=== PATIENT | female | born 1975 | race Caucasian/White ===

== ENCOUNTER 2018-05-09 13:56 | Emergency (ER) | payer OTHER, SELFPAY ==
[2018-05-09 13:57] VITALS: BP 154/91; PULSE 95; RESP 20; TEMP 36.9; O2SAT 97; BMI 31.7
--- NOTE | 2018-05-09 14:11 | CT_ITS ---
STUDY: CT ABDOMEN AND PELVIS WITHOUT CONTRAST REASON FOR EXAM: Female, 43 years old. Right flank pain. RADIATION DOSAGE (If Supplied By Facility): CTDIvol = ( 9.79 ) mGy, DLP = ( 445.63 ) mGycm TECHNIQUE: Transaxial images were obtained from the dome of the diaphragm to the symphysis pubis without oral contrast, and without intravenous contrast. Sagittal and coronal images were reconstructed. Individualized dose optimization techniques were used for this CT. COMPARISON: None. FINDINGS: The visualized lung bases are unremarkable. The visualized portions of the heart are within normal limits. There is decreased attenuation of the liver consistent with steatosis. Hepatomegaly. There are surgical clips in the gallbladder fossa consistent with a prior cholecystectomy. Normal spleen. Normal pancreas. Normal bilateral adrenal glands. 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 Focal atrophy of the lower pole of the right kidney. Mild hydronephrosis and hydroureter of the lower pole moiety of the right kidney. No ureteral obstruction is seen at this time. Normal left kidney. There is a small hiatal hernia. Normal small intestine. Normal colon. Small lymph nodes are seen in the mesentery in the right lower quadrant. The appendix is visualized and appears normal. Normal abdominal aorta. Normal inferior vena cava. Normal retroperitoneum. Normal urinary bladder. Enlarged fibroid uterus. Follicles are seen in the left ovary. Normal abdominal wall. Normal osseous structures. CT/Abdomen/Pelvis without Cont IMPRESSION: Focal atrophy of the lower pole moiety of the right kidney with mild right hydronephrosis and right hydroureter without ureteral obstruction at this time. Enlarged fibroid uterus. Hepatomegaly and fatty infiltration of the liver. Electronically Signed: Cameron Sierra MD at 14:59 EDT Tel [phone], Service support ,
[2018-05-09] MEDS: Ketorolac 30 MG/ML Syringe IV (14:25)
[2018-05-09] MEDS: 0.9% Normal Saline 1,000 ML 250 ML IV ×2 (14:25→15:58)
[2018-05-09] MEDS: Ondansetron 4 MG/2 ML Vial IV (14:31)
[2018-05-09 14:34] LABS: Mucous, Urine 0 SEEN /hpf (<or=2+)
[2018-05-09 14:39] LABS: Color, Urine Yellow (Yellow); Glucose, Dipstick 1000 mg/dl (Normal); Ketone-Dipstick 5 mg/dl (Negative); Leukocyte Esterase-Dipstick 100 /ul (Negative); Nitrite-Dipstick Negative (Negative); Occult Blood-Urine 25 /ul (Negative); Protein-Dipstick 15 mg/dl (Negative); Specific Gravity, Urine 1.015 (1.002-1.030); Urine Bilirubin Dipstick Negative (Negative); Urine Clarity Sl. Cloudy (Clear); Urine Urobilinogen Normal (Normal)
[2018-05-09 14:40] LABS: Absolute Lymphocyte Count 2.66 X10^3/ul (0.83-4.51); Absolute Neutrophil Count 4.7 X10^3/uL (2.0-7.7); Basophil# 0.04 X10^3/uL; Basophil% 0.5 % (0-1); Eosinophil# 0.13 X10^3/uL; Eosinophils% 1.6 % (0-5); Hematocrit 44.7 % (37-47); Hemoglobin 15.6 g/dl (12.0-15.0); Lymphocyte # 2.66 X10^3/ul (4.0); Lymphocyte % 33.2 % (19-41); Mean Corp Hgb Conc 34.9 g/gl (32-36); Mean Corpuscular Hgb 31.3 pg (27.0-32.0); Mean Corpuscular Volume 89.6 fL (81-99); Mean Platelet Vol. 9.1 fl (6.2-12.0); Monocyte# 0.42 X10^3/uL; Monocyte% 5.2 % (0-10); Neutrophil # 4.74 X10^3/uL (2.7-7.7); Neutrophil % 59.3 % (47-70); Platelet Count 213 K/mm3 (150-450); RBC Distribution Width CV 12.4 % (11.6-14.6); Red Blood Count 4.99 M/mm3 (4.2-5.4)
[2018-05-09 14:41] LABS: POSITIVE COUNT NO; POSITIVE DIFFERENTIAL NO; POSITIVE MORPHOLOGY NO
[2018-05-09 14:48] LABS: Anion Gap 9 (5-15); BUN 11 mg/dL (7-18); BUN/Creat Ratio 14.7 RATIO (10-20); Chloride 100 mmol/L (98-107); Creatinine, Serum 0.75 mg/dL (0.55-1.02); EST Glomerular Filtration Rate 89 mL/min (>60); Est Glom Filt Rate - Afr Amer 108 mL/min (>60); Estimated Creatinine Clearance 106.49 ml/min; Glucose 242 mg/dL (74-106); Sodium Level 134 mmol/L (136-145)
[2018-05-09 14:55] LABS: Red Blood Cells-Urine 0-5 SEEN /hpf (0-5); Squamous Epithelial Cells - UA 0-5 SEEN /hpf (5-10); White Blood Cells 5-10 SEEN /hpf (0-5)
[2018-05-09 14:56] LABS: Bacteria RARE /hpf (None Seen); Yeast-Urine RARE /hpf (None Seen)
[2018-05-09] MEDS: morphine 8 MG/ML Syringe 6 MG IV ×2 (15:18→15:55)
--- NOTE | 2018-05-09 15:22 | ED.DCSUM_ITS ---
- ER Visit Summary Date of Service: 05/09/18 Chief Complaint: Acute right flank pain radiating anteriorly History of Present Illness: Patient presents with acute right flank pain that radiates anteriorly with nausea and dry heaves. Started 1-2 hours prior to presentation. She has no history of renal ureterolithiasis. She has no history of any past medical history. There is a family history of diabetes. She denies any fever, chills night sweats. She denies any ocular, visual auditory symptoms. Denies chest pain, palpitations or rapid heartbeat. She denies shortness of breath, cough, dyspnea on exertion. She does complain of frequency and concerned she may have a bladder infection. She states she had a serious kidney infection in the past. She is status post cholecystectomy. She denies any food intolerance. PHYSICAL EXAM: Patient appears uncomfortable. She has dry heaves. She is pacing in the room. She is holding her right side. Vital signs micromelic blood pressure 134/97. She is afebrile. HEENT exam is unremarkable. Heart is regular without murmur, gallop or rub. S1 and S2 are normal. Lungs are clear to auscultation with good movement of air bilaterally. Abdomen is soft nontender with diminished bowel sounds. There is no paraspinal megaly. There is no CVA tenderness noted. There is no evidence of hernia. There is no dermatologic lesions suggest herpes varicella-zoster. Lower extremity exam is unremarkable. She is alert oriented ?3 with nonfocal neurologic exam Test Results: CT of the abdomen reveals hydronephrosis hydroureter without visualized stone. CBC is unremarkable. BMP is marked for glucose of 242. Urinalysis is remarkable for leukoesterase and blood 125 especially on macro. 0 -5 WBCs 5-10 RBCs with rare bacteria. Glucose is 1000. Emergency Department Course and Treatment: IV was established and she was treated with 4 mg of Zofran with resolution of her nausea and vomiting and 30 minutes Toradol. She complained of severe pain. She is received 2 doses morphine 6 mg IV push. She is still in discomfort. She received a third dose of morphine. Page was placed to Dr. Sanchez for urology. He will admit patient. He asked for the floor to call him for orders. He is presently unable to give them. He has Treatment Plan: Since pain is not managed with probable morphine 30 of Toradol she will be admitted to urology service Disposition: 23 hour observation MedSurg Impression: Acute right flank pain with hydronephrosis and ureter Hyperglycemia in a nondiabetic, new onset diabetes This note was generated with [employer] dictation software. It may contain incorrect words, spelling, and punctuation that were not noted in review of the chart prior to signing ED Disposition - Plan for ED Patient: Disposition: Home or Assisted Living Chief Complaint: Flank Pain Referrals: [facility],Out of [Primary Care Provider] -
[2018-05-09 16:34] VITALS: BMI 31.7
[2018-05-09 17:35] VITALS: BP 139/89; PULSE 85; RESP 17; O2SAT 94
--- NOTE | 2018-05-09 17:58 | ED.DEP ---
ED Disposition - Plan for ED Patient: Disposition: Home or Assisted Living Chief Complaint: Flank Pain Instructions: ED Kidney Infec Female Prescriptions: Oxycodone HCl/Acetaminophen [Percocet 5/325] 1 tablet PO Q6H PRN PRN 3 Days #12 tablet PRN Reason: Pain proMETHazine tablet [Phenergan] 25 mg PO Q6H PRN PRN #10 tablet PRN Reason: Nausea Fluconazole [Diflucan] 150 mg PO X1 #1 tablet Ciprofloxacin [Cipro] 500 mg PO BID #14 tablet Referrals: [facility] Doctor,Out of [Primary Care Provider] -
--- NOTE | 2018-05-09 18:04 | DCINST.ED_ITS ---
ED Disposition - Plan for ED Patient: Disposition: Home or Assisted Living Chief Complaint: Flank Pain Instructions: ED Kidney Infec Female Prescriptions: Oxycodone HCl/Acetaminophen [Percocet 5/325] 1 tablet PO Q6H PRN PRN 3 Days #12 tablet PRN Reason: Pain proMETHazine tablet [Phenergan] 25 mg PO Q6H PRN PRN #10 tablet PRN Reason: Nausea Fluconazole [Diflucan] 150 mg PO X1 #1 tablet Ciprofloxacin [Cipro] 500 mg PO BID #14 tablet Referrals: [facility] Doctor,Out of [Primary Care Provider] -
[2018-05-09 18:35] VITALS: PULSE 85; RESP 17; O2SAT 95
== END 2018-05-09 18:49 | disposition home or self-care (01) ==
PROVIDERS: Emergency Medicine; Emergency Provider Emergency Medicine
DX: N13.30 Unspecified hydronephrosis (principal); E11.65 Type 2 diabetes mellitus with hyperglycemia; Z83.3 Family history of diabetes mellitus; Z90.49 Acquired absence of other specified parts of digestive tract
CPT/HCPCS: 74176; 80048; 81001; 85025; 87086; 87088; 96361; 96374; 96375; 96376; 99283; J7030; A4216; J2405

== ENCOUNTER 2018-05-10 13:41 | Inpatient (IN) | payer OTHER, SELFPAY ==
[2018-05-10] VITALS (8 sets, daily range): BP systolic 105–144; BP diastolic 72–97; PULSE 105–109; RESP 16–20; TEMP 36.6–38.8; O2SAT 92–97; BMI 30.4; BMI 30.5
[2018-05-10 14:24] LABS: Mucous, Urine 0 SEEN /hpf (<or=2+)
[2018-05-10 14:27] LABS: Color, Urine Yellow (Yellow); Glucose, Dipstick 1000 mg/dl (Normal); Ketone-Dipstick 50 mg/dl (Negative); Leukocyte Esterase-Dipstick 100 /ul (Negative); Nitrite-Dipstick Negative (Negative); Occult Blood-Urine 25 /ul (Negative); Protein-Dipstick Negative (Negative); Urine Bilirubin Dipstick Negative (Negative); Urine Clarity Sl. Cloudy (Clear); Urine Urobilinogen Normal (Normal)
[2018-05-10 14:36] LABS: Bacteria RARE /hpf (None Seen); Red Blood Cells-Urine 0-5 SEEN /hpf (0-5); Squamous Epithelial Cells - UA 0-5 SEEN /hpf (5-10); White Blood Cells 10-25 SEEN /hpf (0-5)
[2018-05-10] MEDS: LORazepam 2 MG/ML Syringe 1 MG IV (14:43)
[2018-05-10] MEDS: Ketorolac 30 MG/ML Syringe IV (14:43)
[2018-05-10] MEDS: Morphine 4 MG/ML Syringe IV (14:43)
[2018-05-10] MEDS: Ondansetron 4 MG/2 ML Vial IV (14:43)
[2018-05-10 14:45] LABS: Absolute Lymphocyte Count 1.64 X10^3/ul (0.83-4.51); Absolute Neutrophil Count 13.5 X10^3/uL (2.0-7.7); Basophil# 0.03 X10^3/uL; Basophil% 0.2 % (0-1); Eosinophil# 0.04 X10^3/uL; Eosinophils% 0.2 % (0-5); Hematocrit 42.9 % (37-47); Hemoglobin 15.1 g/dl (12.0-15.0); Lymphocyte # 1.64 X10^3/ul (4.0); Lymphocyte % 9.9 % (19-41); Mean Corp Hgb Conc 35.2 g/gl (32-36); Mean Corpuscular Hgb 31.7 pg (27.0-32.0); Mean Corpuscular Volume 89.9 fL (81-99); Mean Platelet Vol. 8.9 fl (6.2-12.0); Monocyte# 1.27 X10^3/uL; Monocyte% 7.7 % (0-10); Neutrophil # 13.46 X10^3/uL (2.7-7.7); Neutrophil % 81.7 % (47-70); Platelet Count 214 K/mm3 (150-450); RBC Distribution Width CV 12.5 % (11.6-14.6); RBC Distribution Width SD 40.7 fl (35.1-43.9); Red Blood Count 4.77 M/mm3 (4.2-5.4); White Blood Count 16.5 K/mm3 (4.4-11.0)
[2018-05-10 14:47] LABS: POSITIVE COUNT NO; POSITIVE DIFFERENTIAL NO; POSITIVE MORPHOLOGY NO
[2018-05-10 14:54] LABS: ALB/GLOB Ratio 0.9 RATIO (0.9-2.4); AST(SGOT) 24 U/L (15-37); Alanine Aminotransfer ALT/SGPT 60 U/L (13-56); Albumin, Serum 3.6 g/dL (3.2-5.0); Alkaline Phosphatase 70 U/L (45-117); Anion Gap 8 (5-15); BUN 7 mg/dL (7-18); BUN/Creat Ratio 8.9 RATIO (10-20); Calcium,Total 8.5 mg/dL (8.5-10.1); Chloride 100 mmol/L (98-107); Creatinine, Serum 0.78 mg/dL (0.55-1.02); EST Glomerular Filtration Rate 85 mL/min (>60); Est Glom Filt Rate - Afr Amer 102 mL/min (>60); Estimated Creatinine Clearance 65.42 ml/min; Globulin 3.9 g/dL (2.2-4.2); Glucose 261 mg/dL (74-106); Potassium 3.8 mmol/L (3.5-5.1); Protein, Total 7.5 g/dL (6.4-8.2); Sodium Level 133 mmol/L (136-145)
--- NOTE | 2018-05-10 14:57 | CT_ITS ---
STUDY: CT ABDOMEN AND PELVIS WITH CONTRAST REASON FOR EXAM: Female, 43 years old. Right flank pain RADIATION DOSAGE (If Supplied By Facility): CTDIvol = ( 18.73 ) mGy, DLP = ( 1884.31 ) mGycm TECHNIQUE: Transaxial images were obtained from the dome of the diaphragm to the symphysis pubis without oral contrast. 100 ml of Isovue 300 contrast was administered. Sagittal and coronal images were reconstructed. Individualized dose optimization techniques were used for this CT. COMPARISON: May 09, 2018. FINDINGS: The visualized lung bases are unremarkable. The visualized portions of the heart are within normal limits. There is hepatomegaly with diffuse hepatic enlargement. There are surgical clips in the gallbladder fossa consistent with a prior cholecystectomy. Normal spleen. Normal pancreas. Normal bilateral adrenal glands. There is cortical thinning with scarring at the lower pole of the right kidney. There is diminished function at the lower pole of the right kidney. 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 There is moderate hydronephrosis of the lower pole moiety with perinephric stranding. Normal left kidney. Normal visualized stomach. Normal small intestine. Normal colon. There is non-visualization of the appendix. Normal abdominal aorta. Normal inferior vena cava. Normal retroperitoneum. Normal urinary bladder. Normal visualized uterus. There is no free fluid in the abdomen or pelvis. Normal abdominal wall. Normal osseous structures. CT/Abdomen/Pelvis W IV Cont ONLY IMPRESSION: There is abnormal right kidney. 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 There is chronic moderate hydronephrosis of the lower pole moiety with thinning of the cortex and diminished function. No stones are seen. Hepatomegaly. Electronically Signed: Miah Crandall MD at 15:47 EDT , Service support ,
--- NOTE | 2018-05-10 15:04 | ED.DCSUM_ITS ---
- ER Visit Summary Date of Service: 05/10/18 Chief Complaint: Right flank pain History of Present Illness: The patient is a 43 F who states that she recently went on a 20+ day travel where she was driving. During which time she developed a yeast infection. She states that she was to return home to [facility] yesterday. She got about a half hour to her trip when she had a sudden onset of right sided abdominal and flank pain. States it is described as sharp constant waxing and waning. She was seen in the emergency department yesterday had a CT that showed her ureter of what appears to be a duplicated system on the right. Patient's white count at that time was 8. Urinalysis did not show overt infection. The patient was seen by urology and was discharged. Patient states that her pain is worse today. She does note some feelings of urinary frequency and some slight burning. No reported fevers. Physical Examination: Afebrile vital signs show a tachycardia of 105 Gen: Well-nourished well-developed Head: Normocephalic atraumatic Eyes: Perrl EOMI ENT: TMs clear no rhinorrhea moist mucous membranes Neck: Supple no lymphadenopathy no JVD nontender CVS: Regular rate rhythm no murmurs normal S1-S2 Respiratory: No distress clear to auscultation bilaterally chest nontender Abdomen: Soft mildly tender to palpation on the right quadrants nondistended normal bowel sounds no masses Back: Right CVA tenderness Extremity: Nontender no edema Skin: Normal color no rash Neuro: alert orientated ?3 CN II-XII intact normal strength sensation reflexes gait cerebellar Psych: Normal affect normal mood Test Results: White count today is 16.5 with 81.7 neutrophils. Glucose 261. Urinalysis 10-25 white cells with rare bacteria. CT abdomen pelvis now demonstrates periureteral and perinephric stranding. Blood and urine cultures were obtained. Emergency Department Course and Treatment: Patient received IV fluids, Ativan, morphine, Toradol, Zofran, and Rocephin. Her pain is improved. I discussed the case with Dr. Hartman. Her plan will be admission into the hospital. Impression: 1. Acute pyelonephritis This note was generated with [employer] dictation software. It may contain incorrect words, spelling, and punctuation that were not noted in review of the chart prior to signing ED Disposition - Plan for ED Patient: Chief Complaint: Abd Pain Referrals: [facility] Doctor,Out of [Primary Care Provider] -
[2018-05-10 15:52] LABS: Internal QC Validated? YES +Cl - CLEAR BKGD; Pregnancy, Urine Negative Negative
--- NOTE | 2018-05-10 16:24 | NURSING ---
DR TARIQ MIRZA
--- NOTE | 2018-05-10 16:25 | PCM.HP.STD ---
History of Present Illness The patient is a 43 year old F [] Past Medical History Past Medical History (Chronic Problems): Chronic Problems Borderline diabetes mellitus (Chronic) HLD (hyperlipidemia) (Chronic) Tobacco dependence (Chronic) Allergies No Known Allergies Allergy (Verified 05/09/18 13:59) Home Medications: Ambulatory Orders Medication Instructions Recorded Ciprofloxacin [Cipro] 500 mg PO BID #14 tablet 05/09/18 Fluconazole [Diflucan] 150 mg PO X1 #1 tablet 05/09/18 Oxycodone HCl/Acetaminophen 1 tablet PO Q6H PRN PRN 3 Days #12 05/09/18 [Percocet 5/325] tablet Smoking Status: Never smoker - *Family History Maternal History Items: Diabetes, Heart Disease Paternal History Items: Diabetes, Heart Disease Patient Problems: Active and Suspected Problems Acute pyelonephritis (Acute) - Physical Exam Vital Signs Temp Pulse Resp BP Pulse Ox 98.3 F 105 H 19 H 143/81 H 96 05/10/18 13:42 05/10/18 13:53 05/10/18 13:53 05/10/18 13:53 05/10/18 13:53 Oxygen Delivery Method Room Air Weight: 156 lb Body Mass Index (BMI) 30.4 Laboratory Tests Past 24 Hrs 05/10/18 05/10/18 05/10/18 13:08 13:08 14:20 WBC 16.5 H RBC 4.77 Hgb 15.1 H Hct 42.9 MCV 89.9 MCH 31.7 MCHC 35.2 RDW 12.5 RDW Differential 40.7 Plt Count 214 MPV 8.9 Immature Gran % (Auto) 0.300 Neut % (Auto) 81.7 H Lymph % (Auto) 9.9 L [place] % (Auto) 7.7 Eos % (Auto) 0.2 Baso % (Auto) 0.2 Absolute Neuts (auto) 13.5 H Absolute Lymphs (auto) 1.64 Total Counted Not Reportable Sodium 133 L Potassium 3.8 Chloride 100 Carbon Dioxide 25.0 Anion Gap 8 BUN 7 Creatinine 0.78 Estim Creat Clear Calc 65.42 Est GFR (MDRD) Af Amer 102 Est GFR (MDRD) Non-Af 85 BUN/Creatinine Ratio 8.9 L Glucose 261 H Calcium 8.5 Total Bilirubin 0.90 AST 24 ALT 60 H Alkaline Phosphatase 70 Total Protein 7.5 Albumin 3.6 Globulin 3.9 Albumin/Globulin Ratio 0.9 Urine Color Yellow Urine Clarity Sl. Cloudy Urine pH 8.0 Ur Specific [place] 1.010 Urine Protein Negative Urine Glucose (UA) 1000 H Urine Ketones 50 H Urine Occult Blood 25 H Urine Nitrite Negative Urine Bilirubin Negative Urine Urobilinogen Normal Ur Leukocyte Esterase 100 H Urine RBC 0-5 SEEN Urine WBC 10-25 SEEN Ur Squamous Epith Cells 0-5 SEEN Urine Bacteria RARE Urine Mucus 0 SEEN Urine Test 05/10/18 14:20 WBC RBC Hgb Hct MCV MCH MCHC RDW RDW Differential Plt Count MPV Immature Gran % (Auto) Neut % (Auto) Lymph % (Auto) [place] % (Auto) Eos % (Auto) Baso % (Auto) Absolute Neuts (auto) Absolute Lymphs (auto) Total Counted Sodium Potassium Chloride Carbon Dioxide Anion Gap BUN Creatinine Estim Creat Clear Calc Est GFR (MDRD) Af Amer Est GFR (MDRD) Non-Af BUN/Creatinine Ratio Glucose Calcium Total Bilirubin AST ALT Alkaline Phosphatase Total Protein Albumin Globulin Albumin/Globulin Ratio Urine Color Urine Clarity Urine pH Ur Specific [place] Urine Protein Urine Glucose (UA) Urine Ketones Urine Occult Blood Urine Nitrite Urine Bilirubin Urine Urobilinogen Ur Leukocyte Esterase Urine RBC Urine WBC Ur Squamous Epith Cells Urine Bacteria Urine Mucus Urine Test Negative Assessment/Plan All Active Problems Acute pyelonephritis (Acute)
--- NOTE | 2018-05-10 16:46 | NURSING ---
PCU PYELONEPHRITIS KORAM
--- NOTE | 2018-05-10 16:52 | NURSING ---
DR POTTER IN ER
[2018-05-10 16:57] LABS: Lactic Acid 1.6 mmol/L (0.4-2.0)
--- NOTE | 2018-05-10 17:06 | NURSING ---
ORDERED CHANGED TO MED SURG
--- NOTE | 2018-05-10 17:06 | PCM.HP.STD ---
<Nesha Silverio - Last Filed: 05/10/18 17:39> Problem List (1) Borderline diabetes mellitus Status: Chronic (2) HLD (hyperlipidemia) Status: Chronic (3) Tobacco dependence Status: Chronic (4) Acute pyelonephritis Status: Acute History of Present Illness Date of Admission: 05/10/18 Chief Complaint: Right flank pain. The patient is a 43 year old F who presents to the emergency room with right flank pain. Patient states pain began suddenly yesterday when beginning travel home to [place]. She states pain was 10+/10 and sharp in nature, waxing and waning. Worse with movement. Pain radiates to right abdomen. Complains of nausea and vomiting associated with pain. Denies fever, chills. States she has had a yeast infection recently which she has been treating with [id number] medication. Complains of mild dysuria and urinary frequency. Patient states she originally presented to ER yesterday. She was evaluated and discharged with Cipro p.o. and as needed pain medication. Her symptoms did not improve and she returned for further evaluation. Patient states she has had a kidney infection approximately 2 years ago and was told at that time that she had 2 ureters on the right side. She denies history of kidney stones. Denies history of frequent UTIs. Her past medical history includes borderline diabetes, hyperlipidemia, tobacco dependence, history of bowel obstruction. Past Medical History Past Medical History (Chronic Problems): Chronic Problems Borderline diabetes mellitus (Chronic) HLD (hyperlipidemia) (Chronic) Tobacco dependence (Chronic) Allergies No Known Allergies Allergy (Verified 05/09/18 13:59) Home Medications: Ambulatory Orders Medication Instructions Recorded Ciprofloxacin [Cipro] 500 mg PO BID #14 tablet 05/09/18 Fluconazole [Diflucan] 150 mg PO X1 #1 tablet 05/09/18 Oxycodone HCl/Acetaminophen 1 tablet PO Q6H PRN PRN 3 Days #12 05/09/18 [Percocet 5/325] tablet Surgical History: cholecystectomy Psychiatric History: No pertinent psych hx [employer] History: No pertinent [employer] history Lives: Spouse/ Significant Other Smoking Status: Current every day smoker Tobacco Use: Cigarettes Alcohol: Occasional Drugs: None - *Family History Maternal History Items: Diabetes, Heart Disease Paternal History Items: Diabetes, Heart Disease Review of Systems Constitutional: Denies: Anorexia, Chills, Fever, Weakness, Weight Change HEENT: Denies: Head Aches, Sinus Congestion, Sinus Drainage Cardiovascular: Denies: Chest Pain, Edema, Palpitations, Syncope Respiratory: Denies: Cough, Shortness of breath at rest, Sputum production Gastrointestinal: Reports: Abdominal Pain - Right sided, Nausea, Vomiting. Denies: Constipation, Diarrhea Genitourinary: Reports: Dysuria, Frequency. Denies: Hematuria, Incontinence Musculoskeletal: Reports: - - Right flank pain. Denies: Joint Pain, Joint Tenderness Skin: Denies: Rash, Wounds Neurological: Denies: Numbness, Tingling, Focal weakness Psychiatric: Denies: Anxiety, Depression, Homicidal Ideations, Suicidal Ideations Hematologic/ Lymphatic: Denies: Easy Bruising, Easy Bleeding VTE Information - Inpt Only VTE Present on Admission: No VTE Mechan Device Prophylaxis: None VTE Pharm Prophylaxis ordered?: Yes Patient Problems: Active and Suspected Problems Acute pyelonephritis (Acute) Right flank pain (Acute) - Physical Exam General: Alert, Oriented x3, Cooperative, No apparent distress HEENT: Atraumatic, PERRLA, EOMI, Normocephalic Neck: Supple, No JVD, Negative Carotid Bruits Lungs: Clear to auscultation, Normal air movement Cardiovascular: Regular Rhythm, Normal S1, Normal S2, No murmurs, Tachycardic Abdomen: Bowel Sounds Present, Soft, Distended, Obese, Tender - RLQ Extremities: No clubbing, No cyanosis, No edema, Capillary Refill Less than 3 Seconds Skin: No rashes, No breakdown Musculoskeletal: No Tenderness to Palpation of Joints or Extremities Neurological: Cranial nerves II-XII grossly intact, Neuro grossly intact Psych/Mental Status: Normal Affect, Appropriate Vital Signs Temp Pulse Resp BP Pulse Ox 98.3 F 108 H 18 123/81 H 92 05/10/18 13:42 05/10/18 16:56 05/10/18 16:56 05/10/18 16:56 05/10/18 16:56 Oxygen Delivery Method Room Air Weight: 156 lb Body Mass Index (BMI) 30.4 Laboratory Tests Past 24 Hrs 05/10/18 05/10/18 05/10/18 13:08 13:08 14:20 WBC 16.5 H RBC 4.77 Hgb 15.1 H Hct 42.9 MCV 89.9 MCH 31.7 MCHC 35.2 RDW 12.5 RDW Differential 40.7 Plt Count 214 MPV 8.9 Immature Gran % (Auto) 0.300 Neut % (Auto) 81.7 H Lymph % (Auto) 9.9 L [place] % (Auto) 7.7 Eos % (Auto) 0.2 Baso % (Auto) 0.2 Absolute Neuts (auto) 13.5 H Absolute Lymphs (auto) 1.64 Total Counted Not Reportable Sodium 133 L Potassium 3.8 Chloride 100 Carbon Dioxide 25.0 Anion Gap 8 BUN 7 Creatinine 0.78 Estim Creat Clear Calc 65.42 Est GFR (MDRD) Af Amer 102 Est GFR (MDRD) Non-Af 85 BUN/Creatinine Ratio 8.9 L Glucose 261 H Lactic Acid Calcium 8.5 Total Bilirubin 0.90 AST 24 ALT 60 H Alkaline Phosphatase 70 Total Protein 7.5 Albumin 3.6 Globulin 3.9 Albumin/Globulin Ratio 0.9 Urine Color Yellow Urine Clarity Sl. Cloudy Urine pH 8.0 Ur Specific [place] 1.010 Urine Protein Negative Urine Glucose (UA) 1000 H Urine Ketones 50 H Urine Occult Blood 25 H Urine Nitrite Negative Urine Bilirubin Negative Urine Urobilinogen Normal Ur Leukocyte Esterase 100 H Urine RBC 0-5 SEEN Urine WBC 10-25 SEEN Ur Squamous Epith Cells 0-5 SEEN Urine Bacteria RARE Urine Mucus 0 SEEN Urine Test 05/10/18 05/10/18 14:20 16:20 WBC RBC Hgb Hct MCV MCH MCHC RDW RDW Differential Plt Count MPV Immature Gran % (Auto) Neut % (Auto) Lymph % (Auto) [place] % (Auto) Eos % (Auto) Baso % (Auto) Absolute Neuts (auto) Absolute Lymphs (auto) Total Counted Sodium Potassium Chloride Carbon Dioxide Anion Gap BUN Creatinine Estim Creat Clear Calc Est GFR (MDRD) Af Amer Est GFR (MDRD) Non-Af BUN/Creatinine Ratio Glucose Lactic Acid 1.6 Calcium Total Bilirubin AST ALT Alkaline Phosphatase Total Protein Albumin Globulin Albumin/Globulin Ratio Urine Color Urine Clarity Urine pH Ur Specific [place] Urine Protein Urine Glucose (UA) Urine Ketones Urine Occult Blood Urine Nitrite Urine Bilirubin Urine Urobilinogen Ur Leukocyte Esterase Urine RBC Urine WBC Ur Squamous Epith Cells Urine Bacteria Urine Mucus Urine Test Negative Assessment/Plan All Active Problems Acute pyelonephritis (Acute) Right flank pain (Acute) 1. 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 Chronic moderate hydronephrosis. No stones noted. Hepatomegaly. Dr. Hartman consulted. Zofran as needed for nausea. PRN pain regimen. IV Levaquin. IV fluids. Urine and blood cultures pending. 2. Tobacco dependence-encouraged tobacco cessation. Nicotine replacement patch if desired. 3. Borderline diabetes-states her previous hemoglobin A1c's have been borderline. Previously on metformin for gestational diabetes. Has upcoming appointment for a repeat hemoglobin A1c. Accu-Cheks before meals at bedtime with sliding scale insulin. 4. Hyperlipidemia- not on statin. States she has upcoming appointment for routine lab work including lipid panel. History of hyperlipidemia, not previously on statin. 5. History of bowel obstruction DVT prophylaxis-Lovenox sc This patient was seen by MANDI Chávez under the supervision of Dr. Medrano. <Ana Medrano - Last Filed: 05/10/18 17:46> Problem List (1) Right flank pain Status: Acute History of Present Illness The patient is a 43 year old F [] Past Medical History Allergies No Known Allergies Allergy (Verified 05/09/18 13:59) - Physical Exam Vital Signs Temp Pulse Resp BP Pulse Ox 98.3 F 108 H 18 123/81 H 92 05/10/18 13:42 05/10/18 16:56 05/10/18 16:56 05/10/18 16:56 05/10/18 16:56 Oxygen Delivery Method Room Air Assessment/Plan Patient seen by Nesha Silverio under my supervision Patient seen and examined. She is a 43-year-old female with a history of borderline diabetes and tobacco dependence as well as hyperlipidemia. She was admitted with a complaint of right flank pain was started a few days ago. Patient is from [place] and had been on a road trip across the years with her for the past 20 days. Right flank pain started on 2 days ago and was sharp radiating towards the groin and waxing and waning with no aggravating factors. She was seen in the [facility] ED on 05/09/2018 and was given a dose of IV ciprofloxacin and fluconazole for yeast infection. CT of the abdomen done did not brain picker any stone. Pain however persisted and so patient came back today. She had associated nausea vomiting and admitted to a low-grade fever but denied any chills. CT abdomen done in the ED showed right perinephric stranding suspicious for pyelonephritis. She was therefore admitted and is being worked up for pyelonephritis. Physical exam significant for right costophrenic angle tenderness and moderate right upper quadrant tenderness, with no guarding or rebound tenderness; physical examination otherwise benign. CT abdomen showed partial duplication of collecting system of the right kidneyand moderate chronic hydronephrosis; no stones noted. Will admit to [facility]Ed Surg and manage for right pyelonephritis. Will give IVF NS, IV morphine for pain, IV phenergan, and start IV levofloxacin. Will consult Dr Hartman (urology). Agree with Nurse Practitioner Nesha Silverio's note. Code Visit Inpatient E&M: 72221 Subs Hosp L3
--- NOTE | 2018-05-10 17:16 | HP.PCM_ITS ---
<Nesha Silverio - Last Filed: 05/10/18 17:39> Problem List (1) Borderline diabetes mellitus Status: Chronic (2) HLD (hyperlipidemia) Status: Chronic (3) Tobacco dependence Status: Chronic (4) Acute pyelonephritis Status: Acute History of Present Illness Date of Admission: 05/10/18 Chief Complaint: Right flank pain. The patient is a 43 year old F who presents to the emergency room with right flank pain. Patient states pain began suddenly yesterday when beginning travel home to [place]. She states pain was 10+/10 and sharp in nature, waxing and waning. Worse with movement. Pain radiates to right abdomen. Complains of nausea and vomiting associated with pain. Denies fever, chills. States she has had a yeast infection recently which she has been treating with over-the- counter medication. Complains of mild dysuria and urinary frequency. Patient states she originally presented to ER yesterday. She was evaluated and discharged with Cipro p.o. and as needed pain medication. Her symptoms did not improve and she returned for further evaluation. Patient states she has had a kidney infection approximately 2 years ago and was told at that time that she had 2 ureters on the right side. She denies history of kidney stones. Denies history of frequent UTIs. Her past medical history includes borderline diabetes , hyperlipidemia, tobacco dependence, history of bowel obstruction. 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 Lives: Spouse/ Significant Other Smoking Status: Current every day smoker Tobacco Use: Cigarettes Alcohol: Occasional Drugs: None - *Family History Maternal History Items: Diabetes, Heart Disease Paternal History Items: Diabetes, Heart Disease Review of Systems Constitutional: Denies: Anorexia, Chills, Fever, Weakness, Weight Change HEENT: Denies: Head Aches, Sinus Congestion, Sinus Drainage Cardiovascular: Denies: Chest Pain, Edema, Palpitations, Syncope Respiratory: Denies: Cough, Shortness of breath at rest, Sputum production Gastrointestinal: Reports: Abdominal Pain - Right sided, Nausea, Vomiting. Denies: Constipation, Diarrhea Genitourinary: Reports: Dysuria, Frequency. Denies: Hematuria, Incontinence Musculoskeletal: Reports: - - Right flank pain. Denies: Joint Pain, Joint Tenderness Skin: Denies: Rash, Wounds Neurological: Denies: Numbness, Tingling, Focal weakness Psychiatric: Denies: Anxiety, Depression, Homicidal Ideations, Suicidal Ideations Hematologic/ Lymphatic: Denies: Easy Bruising, Easy Bleeding VTE Information - Inpt Only VTE Present on Admission: No VTE Mechan Device Prophylaxis: None VTE Pharm Prophylaxis ordered?: Yes Patient Problems: Active and Suspected Problems Acute pyelonephritis (Acute) Right flank pain (Acute) - Physical Exam General: Alert, Oriented x3, Cooperative, No apparent distress HEENT: Atraumatic, PERRLA, EOMI, Normocephalic Neck: Supple, No JVD, Negative Carotid Bruits Lungs: Clear to auscultation, Normal air movement Cardiovascular: Regular Rhythm, Normal S1, Normal S2, No murmurs, Tachycardic Abdomen: Bowel Sounds Present, Soft, Distended, Obese, Tender - RLQ Extremities: No clubbing, No cyanosis, No edema, Capillary Refill Less than 3 Seconds Skin: No rashes, No breakdown Musculoskeletal: No Tenderness to Palpation of Joints or Extremities Neurological: Cranial nerves II-XII grossly intact, Neuro grossly intact Psych/Mental Status: Normal Affect, Appropriate Vital Signs Temp Pulse Resp BP Pulse Ox 98.3 F 108 H 18 123/81 H 92 05/10/18 13:42 05/10/18 16:56 05/10/18 16:56 05/10/18 16:56 05/10/18 16:56 Oxygen Delivery Method Room Air Weight: 156 lb Body Mass Index (BMI) 30.4 Laboratory Tests Past 24 Hrs 05/10/18 05/10/18 05/10/18 13:08 13:08 14:20 WBC 16.5 H RBC 4.77 Hgb 15.1 H Hct 42.9 MCV 89.9 MCH 31.7 MCHC 35.2 RDW 12.5 RDW Differential 40.7 Plt Count 214 MPV 8.9 Immature Gran % (Auto) 0.300 Neut % (Auto) 81.7 H Lymph % (Auto) 9.9 L [place] % (Auto) 7.7 Eos % (Auto) 0.2 Baso % (Auto) 0.2 Absolute Neuts (auto) 13.5 H Absolute Lymphs (auto) 1.64 Total Counted Not Reportable Sodium 133 L Potassium 3.8 Chloride 100 Carbon Dioxide 25.0 Anion Gap 8 BUN 7 Creatinine 0.78 Estim Creat Clear Calc 65.42 Est GFR (MDRD) Af Amer 102 Est GFR (MDRD) Non-Af 85 BUN/Creatinine Ratio 8.9 L Glucose 261 H Lactic Acid Calcium 8.5 Total Bilirubin 0.90 AST 24 ALT 60 H Alkaline Phosphatase 70 Total Protein 7.5 Albumin 3.6 Globulin 3.9 Albumin/Globulin Ratio 0.9 Urine Color Yellow Urine Clarity Sl. Cloudy Urine pH 8.0 Ur Specific [place] 1.010 Urine Protein Negative Urine Glucose (UA) 1000 H Urine Ketones 50 H Urine Occult Blood 25 H Urine Nitrite Negative Urine Bilirubin Negative Urine Urobilinogen Normal Ur Leukocyte Esterase 100 H Urine RBC 0-5 SEEN Urine WBC 10-25 SEEN Ur Squamous Epith Cells 0-5 SEEN Urine Bacteria RARE Urine Mucus 0 SEEN Urine Test 05/10/18 05/10/18 14:20 16:20 WBC RBC Hgb Hct MCV MCH MCHC RDW RDW Differential Plt Count MPV Immature Gran % (Auto) Neut % (Auto) Lymph % (Auto) [place] % (Auto) Eos % (Auto) Baso % (Auto) Absolute Neuts (auto) Absolute Lymphs (auto) Total Counted Sodium Potassium Chloride Carbon Dioxide Anion Gap BUN Creatinine Estim Creat Clear Calc Est GFR (MDRD) Af Amer Est GFR (MDRD) Non-Af BUN/Creatinine Ratio Glucose Lactic Acid 1.6 Calcium Total Bilirubin AST ALT Alkaline Phosphatase Total Protein Albumin Globulin Albumin/Globulin Ratio Urine Color Urine Clarity Urine pH Ur Specific [place] Urine Protein Urine Glucose (UA) Urine Ketones Urine Occult Blood Urine Nitrite Urine Bilirubin Urine Urobilinogen Ur Leukocyte Esterase Urine RBC Urine WBC Ur Squamous Epith Cells Urine Bacteria Urine Mucus Urine Test Negative Assessment/Plan All Active Problems Acute pyelonephritis (Acute) Right flank pain (Acute) 1. 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 Chronic moderate hydronephrosis. No stones noted. Hepatomegaly. Dr. Hartman consulted. Zofran as needed for nausea. PRN pain regimen. IV Levaquin. IV fluids. Urine and blood cultures pending. 2. Tobacco dependence-encouraged tobacco cessation. Nicotine replacement patch if desired. 3. Borderline diabetes-states her previous hemoglobin A1c's have been borderline. Previously on metformin for gestational diabetes. Has upcoming appointment for a repeat hemoglobin A1c. Accu-Cheks before meals at bedtime with sliding scale insulin. 4. Hyperlipidemia- not on statin. States she has upcoming appointment for routine lab work including lipid panel. History of hyperlipidemia, not previously on statin. 5. History of bowel obstruction DVT prophylaxis-Lovenox sc This patient was seen by MANDI Chávez under the supervision of Dr. Medrano. <Ana Medrano - Last Filed: 05/10/18 17:46> Problem List (1) Right flank pain Status: Acute History of Present Illness The patient is a 43 year old F [] Past Medical History Allergies No Known Allergies Allergy (Verified 05/09/18 13:59) - Physical Exam Vital Signs Temp Pulse Resp BP Pulse Ox 98.3 F 108 H 18 123/81 H 92 05/10/18 13:42 05/10/18 16:56 05/10/18 16:56 05/10/18 16:56 05/10/18 16:56 Oxygen Delivery Method Room Air Assessment/Plan Patient seen by Nesha Silverio under my supervision Patient seen and examined. She is a 43-year-old female with a history of borderline diabetes and tobacco dependence as well as hyperlipidemia. She was admitted with a complaint of right flank pain was started a few days ago. Patient is from [place] and had been on a road trip across the years with her for the past 20 days. Right flank pain started on 2 days ago and was sharp radiating towards the groin and waxing and waning with no aggravating factors. She was seen in the [facility] ED on 05/09/2018 and was given a dose of IV ciprofloxacin and fluconazole for yeast infection. CT of the abdomen done did not cone picker any stone. Pain however persisted and so patient came back today. She had associated nausea vomiting and admitted to a low-grade fever but denied any chills. CT abdomen done in the ED showed right perinephric stranding suspicious for pyelonephritis. She was therefore admitted and is being worked up for pyelonephritis. Physical exam significant for right costophrenic angle tenderness and moderate right upper quadrant tenderness, with no guarding or rebound tenderness; physical examination otherwise benign. CT abdomen showed partial duplication of collecting system of the right kidneyand moderate chronic hydronephrosis; no stones noted. Will admit to [facility] and manage for right pyelonephritis. Will give IVF NS, IV morphine for pain , IV phenergan, and start IV levofloxacin. Will consult Dr Hartman (urology). Agree with Nurse Practitioner Nesha Silverio's note. Code Visit Inpatient E&M: 67304 Subs Hosp L3
[2018-05-10] MEDS: levoFLOXacin IV 750 MG/150 ML BAG 100 MG IV (18:18)
[2018-05-10] MEDS: 0.9% Normal Saline 1,000 ML 100 ML IV (18:18)
[2018-05-10] MEDS: Morphine 2 MG/ML Syringe 1 MG IV ×2 (18:45→23:01)
[2018-05-10] MEDS: Fluconazole 100 MG Tablet 200 MG PO (21:44)
[2018-05-10] MEDS: Insulin Lispro 100 UNIT/ML INSULN.PEN SC (21:49)
[2018-05-10 21:50] LABS: Bedside Glucose 260 mg/dL (70-110)
[2018-05-10] MEDS: Acetaminophen 325 MG Tablet 650 MG PO (23:23)
[2018-05-11] VITALS (12 sets, daily range): BP systolic 104–138; BP diastolic 57–81; PULSE 103–130; RESP 18–20; TEMP 36.9–39.3; O2SAT 92–98
[2018-05-11] MEDS: 0.9% Normal Saline 1,000 ML 100 ML IV ×2 (05:38→17:53)
[2018-05-11] MEDS: Morphine 2 MG/ML Syringe 1 MG IV ×2 (05:38→09:45)
[2018-05-11 06:00] LABS: Absolute Lymphocyte Count 1.42 X10^3/ul (0.83-4.51); Absolute Neutrophil Count 12.1 X10^3/uL (2.0-7.7); Basophil# 0.02 X10^3/uL; Basophil% 0.1 % (0-1); Eosinophils% 0.7 % (0-5); Hematocrit 39.7 % (37-47); Hemoglobin 13.5 g/dl (12.0-15.0); Lymphocyte # 1.42 X10^3/ul (4.0); Lymphocyte % 9.5 % (19-41); Mean Corpuscular Hgb 31.3 pg (27.0-32.0); Mean Corpuscular Volume 91.9 fL (81-99); Mean Platelet Vol. 8.9 fl (6.2-12.0); Monocyte# 1.19 X10^3/uL; Neutrophil % 81.4 % (47-70); Platelet Count 185 K/mm3 (150-450); RBC Distribution Width CV 12.6 % (11.6-14.6); RBC Distribution Width SD 41.3 fl (35.1-43.9); Red Blood Count 4.32 M/mm3 (4.2-5.4); White Blood Count 14.9 K/mm3 (4.4-11.0)
[2018-05-11 06:05] LABS: POSITIVE COUNT NO; POSITIVE DIFFERENTIAL NO; POSITIVE MORPHOLOGY NO
[2018-05-11 06:19] LABS: Anion Gap 8 (5-15); BUN 8 mg/dL (7-18); Calcium,Total 7.9 mg/dL (8.5-10.1); Chloride 103 mmol/L (98-107); Creatinine, Serum 0.73 mg/dL (0.55-1.02); EST Glomerular Filtration Rate 92 mL/min (>60); Est Glom Filt Rate - Afr Amer 111 mL/min (>60); Glucose 229 mg/dL (74-106); Potassium 3.8 mmol/L (3.5-5.1); Sodium Level 138 mmol/L (136-145)
[2018-05-11] MEDS: Insulin Lispro 100 UNIT/ML INSULN.PEN SC ×4 (06:31→20:59)
[2018-05-11 06:35] LABS: Bedside Glucose 226 mg/dL (70-110)
[2018-05-11] MEDS: oxyCODONE 5 MG Tablet PO ×2 (08:18→14:47)
--- NOTE | 2018-05-11 09:26 | CON.PCM_ITS ---
Problem List (1) Acute pyelonephritis Status: Acute (2) Right flank pain Status: Acute (3) Duplicated ureter, right Status: Acute Reason for Consult Date of Consultation: 05/11/18 Reason for Consultation: Right pyelonephritis and duplicated kidney system History of Present Illness: The patient is a 43 year old female who 2 or 3 years ago had a right pyelonephritis and was told that she had a duplicated system on the right side. This is the first time she has had an infection in the right kidney for a long time so was recommend observation. She is not traveling on the road and she is from out of town and she presented to the hospital yesterday with right flank pain and presumptive diagnosis of pyelonephritis was done CAT scan demonstrated lower pole with mild dilation of the ureter consistent with focal pyelonephritis. She was discharged home with pain medicine and Cipro for outpatient management of the pyelonephritis however this failed she came back having fevers and chills and pain in the right side white blood count was elevated to 16. She has been admitted for IV antibiotics a repeat CAT scan was done again demonstrates a duplicated system on the right side she has a lower pole system with minimal function and dilated renal pelvis but no obstruction upper pole is normal. 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 Lives: Spouse/ Significant Other Smoking Status: Current every day smoker Tobacco Use: Cigarettes Alcohol: Occasional Drugs: None - *Family History Maternal History Items: Diabetes, Heart Disease Paternal History Items: Diabetes, Heart Disease Review of Systems Constitutional: Reports: Chills, Fever HEENT: Denies: Head Aches, Sinus Congestion, Sinus Drainage Cardiovascular: Denies: Chest Pain, Palpitations Respiratory: Denies: Cough, Shortness of breath at rest, Sputum production Gastrointestinal: Reports: Abdominal Pain Genitourinary: Denies: Dysuria Musculoskeletal: Denies: Joint Pain, Joint Tenderness Skin: Denies: Rash, Wounds Neurological: Denies: Numbness, Tingling, Focal weakness Psychiatric: Denies: Anxiety, Depression, Homicidal Ideations, Suicidal Ideations Hematologic/ Lymphatic: Denies: Easy Bruising, Easy Bleeding Physical Exam - Physical Exam Vital Signs Temp 98.6 F 05/11/18 03:04 Pulse 103 H 05/11/18 03:04 Resp 18 05/11/18 03:04 BP 116/73 05/11/18 03:04 Pulse Ox 97 05/11/18 03:05 Intake & Output 05/09/18 05/10/18 05/11/18 23:59 23:59 23:59 Intake Total 2180 / 2180 Output Total 400 / 400 Balance 1780 / 1780 Weight: 70.76 kg Intake: Oral 1100 / 1100 IV fluid/meds 1080 / 1080 Output: Urine 400 / 400 Other: Number of Voids 5 Number of times incontinent 1 Urine #2 General: Alert, Oriented x3 HEENT: Atraumatic Oral: Moist Mucosa Neck: Supple Lungs: Normal air movement Cardiovascular: Regular rate Abdomen: Bowel Sounds Present, Soft, Obese, Guarding Rectal: Exam deferred Laboratory Tests Past 24 Hrs 05/11/18 05/11/18 05:20 05:20 WBC 14.9 H RBC 4.32 Hgb 13.5 Hct 39.7 MCV 91.9 MCH 31.3 MCHC 34.0 RDW 12.6 RDW Differential 41.3 Plt Count 185 MPV 8.9 Immature Gran % (Auto) 0.300 Neut % (Auto) 81.4 H Lymph % (Auto) 9.5 L [place] % (Auto) 8.0 Eos % (Auto) 0.7 Baso % (Auto) 0.1 Absolute Neuts (auto) 12.1 H Absolute Lymphs (auto) 1.42 Total Counted Not Reportable Sodium 138 Potassium 3.8 Chloride 103 Carbon Dioxide 27.0 Anion Gap 8 BUN 8 Creatinine 0.73 Estim Creat Clear Calc 69.90 Est GFR (MDRD) Af Amer 111 Est GFR (MDRD) Non-Af 92 BUN/Creatinine Ratio 11.0 Glucose 229 H Calcium 7.9 L Assessment/Plan All Active Problems Acute pyelonephritis (Acute) Right flank pain (Acute) Duplicated ureter, right (Acute) 43-year-old female with duplicated right collecting system and right ureter appears to be complete duplication all the way down to the bladder. She has a focal pyelonephritis in the lower pole system of the right kidney probably is reflux into the lower pole system which is typical. She has prior minimal function of the lower pole system and therefore poor excretion on CT scan. Continue with IV antibiotics. Await urine cultures and follow and change antibiotics per cultures. White blood count is down a little bit the 14. She is clinically stable. We will proceed with conservative management, however she fails to resolve her infection she may require stent placement in the lower pole system. I told the patient also if she continues to get infections in the right kidney she may need a right lower pole heminephrectomy to remove the poorly functioning lower pole system which is a source of the infection. We will continue to follow.
[2018-05-11] MEDS: levoFLOXacin IV 750 MG/150 ML BAG 100 MG IV (09:39)
[2018-05-11] MEDS: Enoxaparin 40 MG/0.4 ML Syringe SC (09:42)
--- NOTE | 2018-05-11 10:55 | PCM.PROGNOTE ---
<Nesha Silverio - Last Filed: 05/11/18 11:01> Patient Problems: Active and Suspected Problems Acute pyelonephritis (Acute) Right flank pain (Acute) Duplicated ureter, right (Acute) Subjective: Patient seen and examined. Continues to complain of right flank pain, right abdominal pain. Complains of fever, chills overnight. Denies further nausea, vomiting. No other current complaints. - Physical Exam General: Alert, Oriented x3, Cooperative HEENT: Atraumatic, PERRLA, EOMI, Normocephalic Neck: Supple, No JVD, Negative Carotid Bruits Lungs: Clear to auscultation, Diminished Cardiovascular: Regular Rhythm, Normal S1, Normal S2, No murmurs, Tachycardic Abdomen: Bowel Sounds Present, Soft, Non Tender, Distended, Obese Extremities: No clubbing, No cyanosis, No edema, Capillary Refill Less than 3 Seconds Skin: No rashes, No breakdown Musculoskeletal: No Tenderness to Palpation of Joints or Extremities Neurological: Cranial nerves II-XII grossly intact, Neuro grossly intact Psych/Mental Status: Normal Affect, Appropriate Vital Signs Temp Pulse Resp BP Pulse Ox 99.1 F 106 H 18 118/78 98 05/11/18 09:04 05/11/18 09:59 05/11/18 09:04 05/11/18 09:04 05/11/18 09:04 Oxygen Flow Rate (L/min) 2 Oxygen Delivery Method Nasal Cannula Weight: 156 lb Body Mass Index (BMI) 30.4 Intake and Output for Last 24 Hours 05/09/18 05/10/18 05/11/18 23:59 23:59 23:59 Intake Total 2180 / 2180 Output Total 400 / 400 Balance 1780 / 1780 Laboratory Tests Past 24 Hrs 05/11/18 05/11/18 05:20 05:20 WBC 14.9 H RBC 4.32 Hgb 13.5 Hct 39.7 MCV 91.9 MCH 31.3 MCHC 34.0 RDW 12.6 RDW Differential 41.3 Plt Count 185 MPV 8.9 Immature Gran % (Auto) 0.300 Neut % (Auto) 81.4 H Lymph % (Auto) 9.[address] [place] % (Auto) 8.0 Eos % (Auto) 0.7 Baso % (Auto) 0.1 Absolute Neuts (auto) 12.1 H Absolute Lymphs (auto) 1.42 Total Counted Not Reportable Sodium 138 Potassium 3.8 Chloride 103 Carbon Dioxide 27.0 Anion Gap 8 BUN 8 Creatinine 0.73 Estim Creat Clear Calc 69.90 Est GFR (MDRD) Af Amer 111 Est GFR (MDRD) Non-Af 92 BUN/Creatinine Ratio 11.0 Glucose 229 H Calcium 7.9 L POC Glucose 05/11/18 05/10/18 06:29 21:46 POC Glucose 226 H 260 H Medical Necessity - Tobacco Use Smoking Status: Current every day smoker Tobacco Use: Cigarettes Assessment/Plan All Active Problems Acute pyelonephritis (Acute) Right flank pain (Acute) Duplicated ureter, right (Acute) 1. 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 Chronic moderate hydronephrosis. No stones noted. Hepatomegaly. Dr. Hartman consulted. Zofran as needed for nausea. PRN pain regimen. IV Levaquin. IV fluids. Urine and blood cultures pending. Dr. Hartman notes patient may need right lower pole heminephrectomy to remove poorly functioning lower pole system if patient's infection does not resolve or she continues to have recurrent infections. Leukocytosis improving. 2. Tobacco dependence-encouraged tobacco cessation. Nicotine replacement patch if desired. 3. Borderline diabetes-states her previous hemoglobin A1c's have been borderline. Previously on metformin for gestational diabetes. Has upcoming appointment for a repeat hemoglobin A1c. Accu-Cheks before meals at bedtime with sliding scale insulin. 4. Hyperlipidemia- not on statin. States she has upcoming appointment for routine lab work including lipid panel. History of hyperlipidemia, not previously on statin. 5. History of bowel obstruction DVT prophylaxis-Lovenox sc This patient was seen by MANDI Chávez under the supervision of Dr. Medrano. <Ana Medrano - Last Filed: 05/11/18 16:47> - Physical Exam Vital Signs Temp Pulse Resp BP Pulse Ox 100.7 F H 120 H 18 133/78 H 92 05/11/18 15:04 05/11/18 15:04 05/11/18 15:04 05/11/18 15:04 05/11/18 15:04 Oxygen Flow Rate (L/min) 2 Oxygen Delivery Method Room Air Weight: 156 lb 1.396 oz Body Mass Index (BMI) 30.4 Intake and Output for Last 24 Hours 05/09/18 05/10/18 05/11/18 23:59 23:59 23:59 Intake Total 2180 / 2180 Output Total 400 / 400 Balance 1780 / 1780 Laboratory Tests Past 24 Hrs 05/11/18 05/11/18 05:20 05:20 WBC 14.9 H RBC 4.32 Hgb 13.5 Hct 39.7 MCV 91.9 MCH 31.3 MCHC 34.0 RDW 12.6 RDW Differential 41.3 Plt Count 185 MPV 8.9 Immature Gran % (Auto) 0.300 Neut % (Auto) 81.4 H Lymph % (Auto) 9.[address] [place] % (Auto) 8.0 Eos % (Auto) 0.7 Baso % (Auto) 0.1 Absolute Neuts (auto) 12.1 H Absolute Lymphs (auto) 1.42 Total Counted Not Reportable Sodium 138 Potassium 3.8 Chloride 103 Carbon Dioxide 27.0 Anion Gap 8 BUN 8 Creatinine 0.73 Estim Creat Clear Calc 69.90 Est GFR (MDRD) Af Amer 111 Est GFR (MDRD) Non-Af 92 BUN/Creatinine Ratio 11.0 Glucose 229 H Calcium 7.9 L POC Glucose 05/11/18 05/11/18 05/10/18 12:00 06:29 21:46 POC Glucose 230 H 226 H 260 H Assessment/Plan Patient seen by Nesha Ferreira nurse practitioner under my supervision. Patient seen and examined. He is still complaining of pain and pain and says she had just received morphine at time the patient was seen. She admitted fever overnight but denied any chills, cough or chest pain, shortness of breath, diarrhea vomiting. She was seen by Dr. Su today and per his notes, patient may need right lower pole heminephrectomy to remove poorly functioning lower pole system if the infection does not improve or she has recurrent symptoms. Labs, vitals and medications reviewed. On examination Vital Signs Height 5 ft Weight: 156 lb 1.396 oz Weight in Pounds 156.1 lbs Pulse Ox 92 Temperature 100.7 F Pulse Rate 120 Respiratory Rate 18 Blood Pressure 133/78 Blood Pressure Position Semi-Fowlers General: Alert, Oriented x3, Cooperative HEENT: Atraumatic, PERRLA, EOMI, Normocephalic Neck: Supple, No JVD, Negative Carotid Bruits Lungs: Clear to auscultation, Diminished Cardiovascular: Regular Rhythm, Normal S1, Normal S2, No murmurs, Tachycardic Abdomen: Bowel Sounds Present, Soft, mild generalised tenderness, and mild right CVA tenderness, Obese Extremities: No clubbing, No cyanosis, No edema, Capillary Refill Less than 3 Seconds Skin: No rashes, No breakdown Musculoskeletal: No Tenderness to Palpation of Joints or Extremities Neurological: Cranial nerves II-XII grossly intact, Neuro grossly intact Psych/Mental Status: Normal Affect, Appropriate Plan is to continue IV levofloxacin for right-sided pyelonephritis. Continue IV fluids and IV morphine for pain. I agree with Nesha Silverio's (WASTEWATER ENGINEER)note and assessment and plan Code Visit Inpatient E&M: 45902 Subs Hosp L3
[2018-05-11 12:05] LABS: Bedside Glucose 230 mg/dL (70-110)
[2018-05-11] MEDS: Acetaminophen 325 MG Tablet 650 MG PO (12:06)
[2018-05-11] MEDS: Magnesium Hydroxide 30 ML UDC PO (12:07)
[2018-05-11 17:46] LABS: Bedside Glucose 250 mg/dL (70-110)
[2018-05-11] MEDS: Ibuprofen 600 MG Tablet PO (18:24)
[2018-05-11] MEDS: Acetaminophen 500 MG Tablet 1000 MG PO (18:25)
[2018-05-11] MEDS: Piperacil/Tazobactam 3.375 GM/50 ML ML IV (18:57)
[2018-05-11 21:11] LABS: Bedside Glucose 314 mg/dL (70-110)
[2018-05-12] VITALS (11 sets, daily range): BP systolic 101–136; BP diastolic 64–81; PULSE 92–129; RESP 18–28; TEMP 37.1–39.4; O2SAT 94–98
[2018-05-12] MEDS: Acetaminophen 500 MG Tablet 1000 MG PO ×4 (00:33→22:32)
--- NOTE | 2018-05-12 00:36 | NURSING ---
Pt given prn tylenol for temp 100.7, still tachy 129, spO2 94% on Ra, but applied 2L via nc. IVF infusing at 100ml/hr. Pt denies pain.
[2018-05-12] MEDS: Morphine 2 MG/ML Syringe 1 MG IV ×2 (02:23→11:49)
[2018-05-12] MEDS: 0.9% Normal Saline 1,000 ML 100 ML IV ×3 (03:45→22:36)
[2018-05-12 05:53] LABS: Hematocrit 39.1 % (37-47); Hemoglobin 12.7 g/dl (12.0-15.0); Mean Corp Hgb Conc 32.5 g/gl (32-36); Mean Corpuscular Hgb 30.5 pg (27.0-32.0); Mean Corpuscular Volume 93.8 fL (81-99); Mean Platelet Vol. 8.9 fl (6.2-12.0); Platelet Count 132 K/mm3 (150-450); RBC Distribution Width CV 12.7 % (11.6-14.6); RBC Distribution Width SD 43.6 fl (35.1-43.9); Red Blood Count 4.17 M/mm3 (4.2-5.4); White Blood Count 5.8 K/mm3 (4.4-11.0)
[2018-05-12] MEDS: Piperacil/Tazobactam 3.375 GM/50 ML ML IV ×3 (05:54→21:56)
[2018-05-12 06:10] LABS: ALB/GLOB Ratio 0.7 RATIO (0.9-2.4); AST(SGOT) 54 U/L (15-37); Alanine Aminotransfer ALT/SGPT 52 U/L (13-56); Albumin, Serum 2.5 g/dL (3.2-5.0); Alkaline Phosphatase 67 U/L (45-117); Anion Gap 9 (5-15); BUN 5 mg/dL (7-18); BUN/Creat Ratio 6.4 RATIO (10-20); Chloride 105 mmol/L (98-107); Creatinine, Serum 0.78 mg/dL (0.55-1.02); EST Glomerular Filtration Rate 85 mL/min (>60); Est Glom Filt Rate - Afr Amer 103 mL/min (>60); Estimated Creatinine Clearance 65.42 ml/min; Globulin 3.5 g/dL (2.2-4.2); Glucose 214 mg/dL (74-106); Potassium 3.7 mmol/L (3.5-5.1); Sodium Level 141 mmol/L (136-145)
[2018-05-12 06:34] LABS: Scan Indicated on CBC? Y/N NO
[2018-05-12] MEDS: proMETHazine 25 MG/ML Syringe 12.5 MG IV ×4 (06:50→22:33)
[2018-05-12 07:01] LABS: Bedside Glucose 225 mg/dL (70-110)
[2018-05-12] MEDS: Insulin Lispro 100 UNIT/ML INSULN.PEN SC ×4 (07:05→22:02)
--- NOTE | 2018-05-12 08:31 | NURSING ---
Dr. Haynes paged and informed of abd distended, nausea, dry heaving and hx of sbo.
[2018-05-12 10:17] LABS: Lactic Acid 1.1 mmol/L (0.4-2.0)
--- NOTE | 2018-05-12 11:06 | NURSING ---
This nurse is aware that Lactic Acid is 1.1.
[2018-05-12] MEDS: Enoxaparin 40 MG/0.4 ML Syringe SC (11:26)
[2018-05-12 11:36] LABS: Bedside Glucose 189 mg/dL (70-110)
--- NOTE | 2018-05-12 11:41 | PN_ITS ---
Patient Problems: Active and Suspected Problems Acute pyelonephritis (Acute) Right flank pain (Acute) Duplicated ureter, right (Acute) Subjective: Patient seen and examined. Lethargic during assessment. States pain is improved. Denies abdominal pain. States she has not had a bowel movement in 3- 4 days. Complains of fever overnight. - Physical Exam General: Alert, Oriented x3, Cooperative, No apparent distress HEENT: Atraumatic, PERRLA, EOMI, Normocephalic Neck: Supple, No JVD, Negative Carotid Bruits Lungs: Clear to auscultation, Diminished Cardiovascular: Regular Rhythm, Normal S1, Normal S2, No murmurs, Tachycardic Abdomen: Bowel Sounds Present, Soft, Non Tender, Distended, Obese Extremities: No clubbing, No cyanosis, No edema, Capillary Refill Less than 3 Seconds Skin: No rashes, No breakdown Musculoskeletal: No Tenderness to Palpation of Joints or Extremities Neurological: Cranial nerves II-XII grossly intact, Neuro grossly intact Psych/Mental Status: Normal Affect, Appropriate Vital Signs Temp Pulse Resp BP Pulse Ox 100.0 F H 100 20 H 116/78 98 05/12/18 11:20 05/12/18 11:20 05/12/18 11:20 05/12/18 11:20 05/12/18 11:20 Oxygen Flow Rate (L/min) 2 Oxygen Delivery Method Room Air Weight: 156 lb 1.396 oz Body Mass Index (BMI) 30.4 Intake and Output for Last 24 Hours 05/10/18 05/11/18 05/12/18 23:59 23:59 23:59 Intake Total 4311 / 4311 940 / 940 Output Total 900 / 900 600 / 600 Balance 3411 / 3411 340 / 340 Laboratory Tests Past 24 Hrs 05/12/18 05/12/18 05/12/18 05:24 05:24 09:46 WBC 5.8 RBC 4.17 L Hgb 12.7 Hct 39.1 MCV 93.8 MCH 30.5 MCHC 32.5 RDW 12.7 RDW Differential 43.6 Plt Count 132 L MPV 8.9 Sodium 141 Potassium 3.7 Chloride 105 Carbon Dioxide 27.0 Anion Gap 9 BUN 5 L Creatinine 0.78 Estim Creat Clear Calc 65.42 Est GFR (MDRD) Af Amer 103 Est GFR (MDRD) Non-Af 85 BUN/Creatinine Ratio 6.4 L Glucose 214 H Lactic Acid 1.1 Calcium 8.0 L Total Bilirubin 0.60 AST 54 H ALT 52 Alkaline Phosphatase 67 Total Protein 6.0 L Albumin 2.5 L Globulin 3.5 Albumin/Globulin Ratio 0.7 L POC Glucose 05/12/18 05/12/18 05/11/18 11:21 06:42 20:54 POC Glucose 189 H 225 H 314 H 05/11/18 05/11/18 17:42 12:00 POC Glucose 250 H 230 H Medical Necessity - Tobacco Use Smoking Status: Current every day smoker Tobacco Use: Cigarettes Assessment/Plan All Active Problems Acute pyelonephritis (Acute) Right flank pain (Acute) Duplicated ureter, right (Acute) 1. 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 Chronic moderate hydronephrosis. No stones noted. Hepatomegaly. Dr. Hartman consulted. Zofran as needed for nausea. PRN pain regimen. IV zosyn. IV fluids. Urine and blood cultures pending. Dr. Hartman notes patient may need right lower pole heminephrectomy to remove poorly functioning lower pole system if patient's infection does not resolve or she continues to have recurrent infections. Leukocytosis improving. Continues to have intermittent fever. 2. Tobacco dependence-encouraged tobacco cessation. Nicotine replacement patch if desired. 3. Borderline diabetes-states her previous hemoglobin A1c's have been borderline. Previously on metformin for gestational diabetes. Has upcoming appointment for a repeat hemoglobin A1c. Accu-Cheks before meals at bedtime with sliding scale insulin. 4. Hyperlipidemia- not on statin. States she has upcoming appointment for routine lab work including lipid panel. History of hyperlipidemia, not previously on statin. 5. History of bowel obstruction-no bowel movement in 3-4 days. Mag citrate ?1. Abdomen soft, distended. Bowel sounds present. Continue to monitor. DVT prophylaxis-Lovenox sc This patient was seen by MANDI Chávez under the supervision of Dr. Haynes.
[2018-05-12] MEDS: 0.9% NaCl Peripheral Flush Adult/Peds IV ×4 (11:50→22:33)
--- NOTE | 2018-05-12 12:46 | CASEMGMT ---
Social Work Note SW attempted to see pt to complete initial assessment. Pt soundly sleeping. This SW oracle ebs developer CM will follow up with pt later today as time allows to confirm discharge plans. Plan: STEPH Deleon PROCESSING TECHNOLOGIST, FORGING PRESS LEVER TENDER
--- NOTE | 2018-05-12 14:37 | CASEMGMT ---
SW spoke w/pt's in the hallway, as pt is sleeping at present. Pt is normally alert and oriented, independent at home. explains that they were here visiting her parents, pt and live in [place]. states they were about to start driving home and pt started having pain in her side, came to the hospital. Pt does have a PCP at home in [place], and pt was planning to see her PCP once they got home. It is not anticipated pt will have any homegoing needs at discharge. SW/MIGUELANGEL remains available should any needs arise. JAMES Youngblood, MILKING MACHINE OPERATOR
[2018-05-12 16:36] LABS: Bedside Glucose 174 mg/dL (70-110)
[2018-05-12] MEDS: Magnesium Citrate 300 ML 150 ML PO (16:40)
--- NOTE | 2018-05-12 18:25 | NURSING ---
Up to bathroom and had 2nd BM after Mg Citrate.
[2018-05-12 22:46] LABS: Bedside Glucose 185 mg/dL (70-110)
[2018-05-13 02:00] VITALS: BP 103/73; PULSE 94; RESP 16; TEMP 36.9; O2SAT 96
[2018-05-13] MEDS: proMETHazine 25 MG/ML Syringe 12.5 MG IV (04:35)
[2018-05-13] MEDS: 0.9% NaCl Peripheral Flush Adult/Peds IV (04:36)
[2018-05-13] MEDS: Ibuprofen 400 MG Tablet 800 MG PO (04:46)
[2018-05-13 04:51] VITALS: BP 138/79; PULSE 113; RESP 20; TEMP 38.6; O2SAT 98
[2018-05-13 06:15] LABS: Hematocrit 37.7 % (37-47); Hemoglobin 12.2 g/dl (12.0-15.0); Mean Corp Hgb Conc 32.4 g/gl (32-36); Mean Corpuscular Volume 92.9 fL (81-99); Mean Platelet Vol. 9.4 fl (6.2-12.0); Platelet Count 161 K/mm3 (150-450); RBC Distribution Width CV 12.6 % (11.6-14.6); RBC Distribution Width SD 42.9 fl (35.1-43.9); Red Blood Count 4.06 M/mm3 (4.2-5.4); White Blood Count 8.3 K/mm3 (4.4-11.0)
[2018-05-13 06:19] LABS: Scan Indicated on CBC? Y/N NO
[2018-05-13 06:22] LABS: Anion Gap 11 (5-15); BUN 6 mg/dL (7-18); BUN/Creat Ratio 9.2 RATIO (10-20); Calcium,Total 8.1 mg/dL (8.5-10.1); Chloride 104 mmol/L (98-107); Creatinine, Serum 0.66 mg/dL (0.55-1.02); EST Glomerular Filtration Rate 104 mL/min (>60); Est Glom Filt Rate - Afr Amer 126 mL/min (>60); Estimated Creatinine Clearance 77.32 ml/min; Glucose 188 mg/dL (74-106); Potassium 3.5 mmol/L (3.5-5.1); Sodium Level 139 mmol/L (136-145)
[2018-05-13] MEDS: Ondansetron 4 MG/2 ML Vial IV (06:26)
[2018-05-13] MEDS: Piperacil/Tazobactam 3.375 GM/50 ML ML IV (06:41)
[2018-05-13] MEDS: Acetaminophen 500 MG Tablet 1000 MG PO (06:44)
[2018-05-13 06:47] VITALS: TEMP 38.3
[2018-05-13 07:25] VITALS: TEMP 37.4
[2018-05-13 07:31] LABS: Bedside Glucose 189 mg/dL (70-110)
[2018-05-13] MEDS: Insulin Lispro 100 UNIT/ML INSULN.PEN SC (07:31)
--- NOTE | 2018-05-13 07:43 | NURSING ---
Pt stated she has slight bleeding from her nose, and when she wiped her rectum and periarea, she noted some blood.
[2018-05-13 07:51] VITALS: BP 122/70; PULSE 106; RESP 20; TEMP 37.1; O2SAT 93
[2018-05-13] MEDS: Enoxaparin 40 MG/0.4 ML Syringe SC (07:53)
[2018-05-13] MEDS: 0.9% Normal Saline 1,000 ML 100 ML IV (07:58)
--- NOTE | 2018-05-13 10:10 | DCINST_ITS ---
- Discharge Diagnoses Current Active Problems: Current Active and Chronic Problems Borderline diabetes mellitus (Chronic) HLD (hyperlipidemia) (Chronic) Tobacco dependence (Chronic) Acute pyelonephritis (Acute) Right flank pain (Acute) Duplicated ureter, right (Acute) You will use the following diet at home:: Calorie/Carbohydrate Controlled ( specify 1200, 1400, etc) Discharge Activity: Return to Normal Activity Call your doctor if you observe: Inability to urinate, Shortness of breath, Dizziness, Fainting spells, Chest pain, Uncontrolled pain Allergies/Adverse Reactions: Allergies No Known Allergies Allergy (Verified 05/09/18 13:59) Medications to take at Discharge Fluconazole [Diflucan] 150 mg PO X1 #1 tablet 05/09/18 Oxycodone HCl/Acetaminophen [Percocet 5-325] 1 tablet PO Q6H PRN PRN 3 Days #12 tablet 05/09/18 Cefdinir [Omnicef [equiv]] 300 mg PO Q12H #14 cap 05/13/18 Ondansetron [Zofran] 8 mg PO Q8H PRN PRN #12 tab 05/13/18 The following prescriptions were given: Ondansetron [Zofran] 8 mg PO Q8H PRN PRN #12 tab PRN Reason: Nausea Cefdinir [Omnicef [equiv]] 300 mg PO Q12H #14 cap Primary Care Physician: Domingo Munroe,Out of [Primary Care Provider] - Please follow up with your Primary Care Physician in: See PCP in 1 week Test Results: Test results from this visit will be discussed in further detail at your follow- up appointment, if applicable. Please Follow Up With: Urology When: 1-2 Weeks Proposed Discharge Date: 05/13/18
--- NOTE | 2018-05-13 10:11 | PCM.DC.SUM ---
Discharge Date and Diagnosis Date of Admission: 05/10/18 Date of Discharge: 05/13/18 - Primary Discharge Diagnosis Active and Suspected Problems 1. Acute right pyelonephritis 2. Tobacco dependence 3. Borderline type 2 diabetes mellitus 4. Hyperlipidemia 5. History of bowel obstruction - Secondary Discharge Diagnosis Chronic Problems Borderline diabetes mellitus (Chronic) HLD (hyperlipidemia) (Chronic) Tobacco dependence (Chronic) Hospital Course and Treatment Imaging Results: Diagnostic Data Abdomen/Pelvis CT 05/10/18 14:57 IMPRESSION: There is abnormal right kidney. 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 There is chronic moderate hydronephrosis of the lower pole moiety with thinning of the cortex and diminished function. No stones are seen. Hepatomegaly. Electronically Signed: Miah Crandall MD at 15:47 EDT , Service support , Dr. Hartman- Urology Operations: None Procedures: None Summary of Care Provided: 1. 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 Chronic moderate hydronephrosis. No stones noted. Hepatomegaly. Dr. Hartman consulted. Zofran as needed for nausea. Patient was treated with IV Zosyn. She will be discharged on Omnicef 300 mg twice daily for 7 days. Blood cultures negative. Urine culture shows lactobacillus and yeast-like organism, low colony count. Patient previously received Diflucan ?[address] Hartman notes patient may need right lower pole heminephrectomy to remove poorly functioning lower pole system if patient's infection does not resolve or she continues to have recurrent infections. Leukocytosis resolved. Follow-up with primary care physician in 1 week. Recommend referral to urologist when patient returns to [place]. 2. Tobacco dependence-encouraged tobacco cessation. 3. Borderline diabetes-states her previous hemoglobin A1c's have been borderline. Previously on metformin for gestational diabetes. Has upcoming appointment for a repeat hemoglobin A1c. 4. Hyperlipidemia- not on statin. States she has upcoming appointment for routine lab work including lipid panel. History of hyperlipidemia, not previously on statin. 5. History of bowel obstruction General: Alert, Oriented x3, Cooperative, No apparent distress HEENT: Atraumatic, PERRLA, EOMI, Normocephalic Neck: Supple, No JVD, Negative Carotid Bruits Lungs: Clear to auscultation, Diminished Cardiovascular: Regular Rhythm, Normal S1, Normal S2, No murmurs, Tachycardic Abdomen: Bowel Sounds Present, Soft, Non Tender, Distended, Obese Extremities: No clubbing, No cyanosis, No edema, Capillary Refill Less than 3 Seconds Skin: No rashes, No breakdown Musculoskeletal: No Tenderness to Palpation of Joints or Extremities Neurological: Cranial nerves II-XII grossly intact, Neuro grossly intact Psych/Mental Status: Normal Affect, Appropriate Patient seen exam prior to discharge. Physical assessment as above. Patient stable for discharge home with follow-up with primary care physician and urology. This patient was seen by MANDI Chávez under the supervision of Dr. Haynes. Discharge Diet: 1800 Calorie Control Diet, Carb Control Diet Discharge Activity: Return to Normal Activity Call your doctor if you observe: Inability to urinate, Shortness of breath, Dizziness, Fainting spells, Chest pain, Uncontrolled pain Home Medications: Medications to take at Discharge Fluconazole [Diflucan] 150 mg PO X1 #1 tablet 05/09/18 Oxycodone HCl/Acetaminophen [Percocet 5-325] 1 tablet PO Q6H PRN PRN 3 Days #12 tablet 05/09/18 Cefdinir [Omnicef [equiv]] 300 mg PO Q12H #14 cap 05/13/18 Ondansetron [Zofran] 8 mg PO Q8H PRN PRN #12 tab 05/13/18 Following Prescrptions Were Given to Patient: Ondansetron [Zofran] 8 mg PO Q8H PRN PRN #12 tab PRN Reason: Nausea Cefdinir [Omnicef [equiv]] 300 mg PO Q12H #14 cap Primary Care Physician: Domingo Munroe,Out of [Primary Care Provider] - Please follow up with your Primary Care Physician in: See PCP in 1 week Please Follow Up With: Urology When: 1-2 Weeks Disposition: Home Minutes spent on discharge:: 35 Patient Condition:: Stable Medical Necessity - Tobacco Use Smoking Status: Current every day smoker Tobacco Use: Cigarettes Meaningful Use Info Meaningful Use Diagnoses (Choose all that apply): None applicable
== END 2018-05-13 12:05 | disposition home or self-care (01) | DRG 690 ==
LOC: ED 16:21 → MS3 17:09
PROVIDERS: Nurse Practitioner Family; Admitting Provider Student in an Organized Health Care Education/Training Program; Emergency Provider Emergency Medicine; Visit Provider Internal Medicine
DX: N10 Acute pyelonephritis (principal); R16.0 Hepatomegaly, not elsewhere classified; E78.5 Hyperlipidemia, unspecified; F17.200 Nicotine dependence, unspecified, uncomplicated; R73.09 Other abnormal glucose; Z90.49 Acquired absence of other specified parts of digestive tract; Z86.32 Personal history of gestational diabetes; Q62.5 Duplication of ureter
CPT/HCPCS: 36415; 74177; 80048; 80053; 81001; 81025; 82962; 83605; 85025; 85027; 87040; 87086; 87088; 99282; J7030; J7040; Q9967; A4216; J0696; J2405

== ENCOUNTER → 2021-04-10 08:52 | Outpatient (CLI) | payer OTHER, SELFPAY ==
[2021-04-07 13:51] VITALS: BMI 30.4
[2021-04-10 13:01] LABS: ALB/GLOB Ratio 1.4 RATIO (0.9-2.4); AST(SGOT) 13 U/L (15-37); Alanine Aminotransfer ALT/SGPT 29 U/L (13-56); Albumin, Serum 3.8 g/dL (3.2-5.0); Alkaline Phosphatase 66 U/L (45-117); Anion Gap 9 (5-15); BUN 10 mg/dL (7-18); Calcium,Total 9.1 mg/dL (8.5-10.1); Chloride 105 mmol/L (98-107); Cholesterol 204 mg/dL (200); Creatinine, Serum 0.71 mg/dL (0.55-1.02); EST Glomerular Filtration Rate 93 mL/min (>60); Est Glom Filt Rate - Afr Amer 113 mL/min (>60); Globulin 2.8 g/dL (2.2-4.2); Glucose 174 mg/dL (74-106); High Density Lipoprotein 34 mg/dL; Potassium 4.5 mmol/L (3.5-5.1); Protein, Total 6.6 g/dL (6.4-8.2); Sodium Level 138 mmol/L (136-145); Triglycerides 301 mg/dL; Very Low Density Lipoprotein 60 mg/dL (5-40)
== END ==
PROVIDERS: Visit Provider Family Medicine
DX: E78.1 Pure hyperglyceridemia (principal); E11.9 Type 2 diabetes mellitus without complications
CPT/HCPCS: 36415; 80053; 80061

== ENCOUNTER → 2023-01-31 | Outpatient (CLI) | payer OTHER, SELFPAY ==
[2023-01-31 12:49] LABS: ALB/GLOB Ratio 1.2 RATIO (0.9-2.4); AST(SGOT) 25 U/L (15-37); Alanine Aminotransfer ALT/SGPT 38 U/L (13-56); Alkaline Phosphatase 62 U/L (45-117); Anion Gap 6 (5-15); BUN 12 mg/dL (7-18); Calcium,Total 9.2 mg/dL (8.5-10.1); Chloride 102 mmol/L (98-107); Cholesterol 195 mg/dL (200); EST Glomerular Filtration Rate 94 mL/min (>60); Est Glom Filt Rate - Afr Amer 113 mL/min (>60); Globulin 3.4 g/dL (2.2-4.2); Glucose 177 mg/dL (74-106); High Density Lipoprotein 34 mg/dL; Potassium 3.8 mmol/L (3.5-5.1); Protein, Total 7.4 g/dL (6.4-8.2); Sodium Level 133 mmol/L (136-145); Triglycerides 475 mg/dL
== END | disposition home or self-care (01) ==
LOC: BIMLAB 10:11
PROVIDERS: PCP Family Medicine; Referring Provider Family Medicine; Visit Provider Family Medicine
DX: E11.9 Type 2 diabetes mellitus without complications (principal)
CPT/HCPCS: 36415; 80053; 80061

== ENCOUNTER → 2023-03-05 | Outpatient (CLI) | payer OTHER, SELFPAY ==
--- NOTE | 2023-03-05 15:23 | BD_ITS ---
STUDY: DUAL ENERGY X-RAY ABSORPTIOMETRY / DXA REASON FOR EXAM: Female, 47 years old. Arthralgia TECHNIQUE: Bone Mineral Density (BMD) measurements of lumbar spine and bilateral hips were obtained. COMPARISON: None. FINDINGS: Lumbar Spine (L1-L4): g/cm2 (1.112) / T-score (0.6) / Z-score (1.3) Findings are suggestive of normal bone density with a low fracture risk. Left Femur Total: g/cm2 (0.949) / T-score (0.1) / Z-score (0.5) Left Femoral Neck: g/cm2 (0.749) / T-score (-0.9) / Z-score (-0.2) Right Femur Total: g/cm2 (0.916) / T-score (-0.2) / Z-score (0.2) Right Femoral Neck: g/cm2 (0.708) / T-score (-1.3) / Z-score (-0.5) BD/Dexa Bone Density Study IMPRESSION: The patient is considered osteopenic as outlined below according to World Luis Organization (WHO) criteria with a low fracture risk. Reference Information: The T-score is the number of standard deviations above or below the standard which is normal for young adults at their peak bone mineral density. The World Health Organization (WHO) interprets the T-scores as follows: Above -1 Normal bone density Between -1 and -2.5 Osteopenia Equal to / or below -2.5 Osteoporosis As a practical clinical guideline, osteopenia may be graded as follows: Mild -1 through -1.5 Moderate -1.6 through -2.0 Severe -2.1 through -2.4 The Z-score is the number of standard deviations above or below age-matched controls. A Z-score of less than -1.5 would be considered abnormal. References: 1. NIH Osteoporosis and Related Bone Diseases www osteo.org 2. International Society for Clinical Densitometry www iscd.org 3. National Osteoporosis Foundation www nof.org Electronically Signed: Cameron Sierra MD at 14:56 EDT ,
== END | disposition home or self-care (01) ==
PROVIDERS: PCP Family Medicine; Referring Provider Family Medicine; Visit Provider Family Medicine
DX: M25.50 Pain in unspecified joint (principal); M86.8X9 Other osteomyelitis, unspecified sites
CPT/HCPCS: 77080

== ENCOUNTER → 2023-11-25 | Outpatient (CLI) | payer OTHER, SELFPAY ==
[2023-11-25 16:27] LABS: Bacteria 0 SEEN /hpf (None Seen); Mucous, Urine 0 SEEN /hpf (<or=2+); Red Blood Cells-Urine 0 SEEN /hpf (0-5); Squamous Epithelial Cells - UA 0 SEEN /hpf (5-10); White Blood Cells 0 SEEN /hpf (0-5)
[2023-11-25 16:53] LABS: Color, Urine Straw (Yellow); Glucose, Dipstick 1000 mg/dl (Normal); Ketone-Dipstick Negative (Negative); Leukocyte Esterase-Dipstick Negative /ul (Negative); Nitrite-Dipstick Negative (Negative); Occult Blood-Urine Negative /ul (Negative); Protein-Dipstick Negative (Negative); Specific Gravity, Urine 1.015 (1.002-1.030); Urine Bilirubin Dipstick Negative (Negative); Urine Clarity Clear (Clear); Urine Urobilinogen Normal (Normal)
== END | disposition home or self-care (01) ==
LOC: LABSPEC 15:12
PROVIDERS: PCP Family Medicine; Referring Provider Physician Assistant; Visit Provider Physician Assistant
DX: R30.0 Dysuria (principal)
CPT/HCPCS: 81001; 87077; 87086; 87088; 87186

== ENCOUNTER → 2023-12-04 | Outpatient (CLI) | payer OTHER, SELFPAY ==
[2023-12-04 12:05] LABS: Mucous, Urine 0 SEEN /hpf (<or=2+); Red Blood Cells-Urine 0 SEEN /hpf (0-5); Squamous Epithelial Cells - UA 0 SEEN /hpf (5-10); White Blood Cells 0 SEEN /hpf (0-5)
--- OUTSIDE RECORDS SUMMARY | 2023-12-04 12:23 | XMS RPT_ITS | CCD ---
Author Name Unknown Address [address] [place] [address] [id number] [place] [address] Organization [facility] Care Team Providers Care Solution Specialist Name Role Phone CHRISTELLE CASTELLANO, WM Attending Unavailable CHRISTELLE CASTELLANO, WM Attending Unavailable CHRISTELLE CASTELLANO, WM Attending Unavailable Medications Current Medications Medication Drug Class(es) Dates Sig (Normalized) Sig (Original) Calcium (3 sources) Phosphate Binder, Calcium Start: 07-17-2022 calcium (as carbonate) 500 mg oral tablet 0 Refill(s) Start Date: 07/17/22 Status: Ordered 24 hr dapagliflozin 10 mg / metFORMIN hydrochloride 1000 mg extended release oral tablet (3 sources) Biguanide, Sodium-Glucose Cotransporter 2 Inhibitor Start: 07-17-2022 take 1 tablet by mouth once daily in the morning Xigduo XR 10 mg-1000 mg oral tablet, extended release Dose = 1 tab(s), Oral, qAM, # 30 tab(s), 0 Refill(s) Start Date: 07/17/22 Status: Ordered fenofibrate 200 mg oral capsule (3 sources) Peroxisome Proliferator Receptor alpha Agonist Start: 07-17-2022 fenofibrate micronized 200 mg oral capsule Dose : 200 mg = 1 cap(s), Oral, qDay, # 30 cap(s), 0 Refill(s) Start Date: 07/17/22 Status: Ordered rosuvastatin calcium 10 mg oral tablet (3 sources) HMG-CoA Reductase Inhibitor Start: 07-17-2022 rosuvastatin 10 mg oral tablet Dose : 10 mg = 1 tab(s), Oral, qDay, 0 Refill(s) Start Date: 07/17/22 Status: Ordered Vitamin D3 (3 sources) Start: 07-17-2022 Vitamin D3 qDay, 0 Refill(s) Start Date: 07/17/22 Status: Ordered Problems Problem Classification Problem Date Documented Da te Episodic/Chronic Other screening for suspected conditions (not mental disorders or infectious disease) (2 sources) Encounter for screening for malignant neoplasm of cervix; Translations: [Encounter for screening for malignant neoplasm of cervix] Onset: 07-17-2022 Episodic Results Test Name Value Interpretation Reference Range Facil ity Encounters Encounter Date Encounter Type Care Provider Facility Start: 11-08-2022 End: 11-08-2022 Patient encounter procedure WM BOURGEOIS MD [facility] Start: 11-06-2022 ambulatory WM BOURGEOIS MD Facilit y:B Start: 10-11-2022 End: 10-12-2022 ambulatory WM BOURGEOIS MD Facility:B Start: 10-11-2022 End: 10-11-2022 Patient encounter procedure WM BOURGEOIS MD [facility] Start: 07-17-2022 End: 07-22-2022 ambulatory WM BOURGEOIS MD Facility:B Start: 07-17-2022 End: 07-22-2022 Encounter for gynecological examination (general) (routine) without abnormal findings WM BOURGEOIS MD Facility:B Start: 07-17-2022 End: 07-21-2022 Outreach Lab WM BOURGEOIS MD [facility] Procedures Date Procedure Procedure Detail Performing Clinician Cholecystectomy WM BOURGEOIS MD Payers Date Payer Category Payer Private Health Insurance [id number] 1975 Unknown [id number] 1975 Unknown [id number] 1975 Unknown [id number] Social History Date Type Detail Facility Start: 07-17-2022 Tobacco smoking status Light t obacco smoker (finding) [facility] Sex Assigned At Female [facility] Evaluation + Plan note 07-17-2022 LaboratoryRadiology Note Date & Type Note Facility 07-17-2022 Evaluation + Plan note Diagnostic Tests PendingHPV Screen, DNA Probe 07/17/22 Future Scheduled TestsRheumatoid Factor 07/17/22Complete Blood Count 07/17/22Sedimentation Rate Automated 07/17/22MA Mammo Screening Bilateral w/ Lamin 07/17/22 [facility] Evaluation + Plan note 07-17-2022 Laboratory Note Date & Type Note Facility 07-17-2022 Evaluation + Plan note Future Scheduled TestsRheumatoid Factor 07/17/22Complete Blood Count 07/17/22Sedimentation Rate Automated 07/17/22 [facility] Hospital course Narrative Note Date & Type Note Facility Hospital course Narrative No data available for this section [facility] Hospital Discharge instructions Note Date & Type Note Facility Hospital Discharge instructions No data available for this section [facility] Progress note Note Date & Type Note Facility Progress note No data available for this section [facility] Summary Purpose Family History No Family History Records Found Advance Directives No Advanced Directives Records Found Additional Source Comments Care Team (unrecognized sect ion and content) Care Team Related Persons Name: SYL FERNANDEZ Care Team Related Persons Name: SYL FERNANDEZ INFORMATION SOURCE (unrecogn ized section and content) FOR RECORDS PERTAINING TO PATIENTS WHO ARE OR HAVE BEEN ENROLLED IN A CHEMICAL DEPENDENCY/SUBSTANCEABUSE PROGRAM, SOME INFORMATION MAY BE OMITTED. This clinical summary was aggregated from multiple sources. Caution should be exercised in using it in the provision of clinical care. This summary normalizes information from multiple sources, and as a consequence, information in this document may materially change the coding, format and clinical context of patient data. In addition, data may be omitted in some cases. CLINICAL DECISIONS SHOULD BE BASED ON THE PRIMARY CLINICAL RECORDS. [facility]. provides no warranty or guarantee of the accuracy or completeness of information in this document.
[2023-12-04 15:28] LABS: Hematocrit 43.3 % (37-47); Hemoglobin 14.7 g/dL (12.0-15.0); Mean Corp Hgb Conc 33.9 g/dL (32-36); Mean Corpuscular Hgb 31.1 pg (27.0-32.0); Mean Corpuscular Volume 91.5 fL (81-99); Mean Platelet Vol. 9.1 fl (6.2-12.0); Platelet Count 311 K/mm3 (150-450); RBC Distribution Width CV 11.8 % (11.6-14.6); RBC Distribution Width SD 39.8 fl (35.1-43.9); Red Blood Count 4.73 M/mm3 (4.2-5.4); White Blood Count 9.1 K/mm3 (4.4-11.0)
[2023-12-04 15:44] LABS: Color, Urine Yellow (Yellow); Glucose, Dipstick 250 mg/dl (Normal); Ketone-Dipstick Negative (Negative); Leukocyte Esterase-Dipstick Negative /ul (Negative); Nitrite-Dipstick Negative (Negative); Occult Blood-Urine Negative /ul (Negative); Protein-Dipstick Negative (Negative); Urine Bilirubin Dipstick Negative (Negative); Urine Clarity Clear (Clear); Urine Urobilinogen Normal (Normal)
[2023-12-04 15:53] LABS: Erythrocyte Sedimentation Rate 5 mm/hr (0-30)
[2023-12-04 16:02] LABS: ALB/GLOB Ratio 1.4 RATIO (0.9-2.4); AST(SGOT) 23 U/L (15-37); Alanine Aminotransfer ALT/SGPT 39 U/L (13-56); Albumin, Serum 4.1 g/dL (3.2-5.0); Alkaline Phosphatase 52 U/L (45-117); Anion Gap 4 (5-15); BUN 14 mg/dL (7-18); BUN/Creat Ratio 19.2 RATIO (10-20); Calcium,Total 9.3 mg/dL (8.5-10.1); Chloride 106 mmol/L (98-107); Cholesterol 153 mg/dL (200); Creatinine, Serum 0.73 mg/dL (0.55-1.02); EST Glomerular Filtration Rate 89 mL/min (>60); Est Glom Filt Rate - Afr Amer 108 mL/min (>60); Glucose 179 mg/dL (74-106); High Density Lipoprotein 36 mg/dL; Potassium 4.1 mmol/L (3.5-5.1); Protein, Total 7.1 g/dL (6.4-8.2); Sodium Level 136 mmol/L (136-145); Triglycerides 210 mg/dL; Very Low Density Lipoprotein 42 mg/dL (5-40)
[2023-12-04 16:12] LABS: Bacteria RARE /hpf (None Seen)
[2023-12-06 12:09] LABS: ANTINUCLEAR ANTIBODIES DIRECT Negative (Negative)
== END | disposition home or self-care (01) ==
LOC: BIMLAB 12:04
PROVIDERS: PCP Family Medicine; Referring Provider Physician Assistant; Visit Provider Physician Assistant
DX: Z00.00 Encounter for general adult medical examination without abnormal findings (principal); M79.10 Myalgia, unspecified site; R35.0 Frequency of micturition; I10 Essential (primary) hypertension; E78.5 Hyperlipidemia, unspecified
CPT/HCPCS: 36415; 80053; 80061; 81001; 85027; 85652; 86038; 86225; 86235; 87086; 87088

== ENCOUNTER → 2024-07-28 | Outpatient (CLI) | payer OTHER, SELFPAY ==
[2024-07-28 15:59] LABS: Cholesterol 265 mg/dL (200); High Density Lipoprotein 34 mg/dL; Triglycerides 1005 mg/dL
== END | disposition home or self-care (01) ==
LOC: BIMLAB 11:52
PROVIDERS: PCP Family Medicine; Referring Provider Family Medicine; Visit Provider Family Medicine
DX: E78.1 Pure hyperglyceridemia (principal)
CPT/HCPCS: 36415; 80061

== ENCOUNTER 2024-11-17 07:49 | Emergency (ER) | payer OTHER, SELFPAY ==
[2024-11-17] VITALS (7 sets, daily range): BP systolic 126–142; BP diastolic 68–89; PULSE 62–96; RESP 16–20; TEMP 35.9–36.6; O2SAT 95–99; BMI 29.0
--- NOTE | 2024-11-17 08:25 | CT_ITS ---
PROCEDURE: ABDOMEN/PELVIS W IV CONT ONLY REASON FOR EXAM: Right-sided abdominal pain since Saturday. Possible bowel obstruction. TECHNIQUE: Abdomen and pelvis CT with intravenous contrast. Coronal and sagittal reconstruction was obtained as well. COMPARISON: None. FINDINGS: Lung bases: Clear Liver: Diffuse fatty infiltration. Gallbladder: Surgically absent. Spleen: Unremarkable. Pancreas: Unremarkable. Adrenals: Unremarkable. Kidneys: Atrophy of the lower pole of the right kidney. This may represent either postsurgical lundy es or old infarct. Bladder: Unremarkable. Reproductive Organs: Small follicles are seen in both ovaries. Bowel: Unremarkable. Appendix: Normal. Lymph nodes: No suspicious lymph node enlargement. Vasculature: Major vascular structures are unremarkable. Peritoneum / Retroperitoneum: No ascites. No free air. Bones: Unremarkable. CT/Abdomen/Pelvis W IV Cont ONLY IMPRESSION: Status post cholecystectomy. Diffuse fatty infiltration of the liver. One or more dose reduction techniques were used (e.g., Automated exposure contr ol, adjustment of the mA and/or kV according to patient size, use of iterative reconstruction technique). Reading Location: [place] [id number]
--- NOTE | 2024-11-17 08:25 | EKG12_ITS ---
Test Reason : FLANK PAIN Blood Pressure : */* mmHG Vent. Rate : 92 BPM Atrial Rate : 92 BPM P-R Int : 140 ms QRS Dur : 80 ms QT Int : 348 ms P-R-T Axes : 40 16 30 degrees QTcB Int : 430 ms Normal sinus rhythm Normal ECG Confirmed by SOM CASTELLANO, PRAVEEN ([id number]), market editor DINA ZAVALA ([id number]) on 11/19/2024 6:35:46 AM Referred By: Confirmed By: PRAVEEN KEARNS MD
--- NOTE | 2024-11-17 08:35 | ED.VIS.FEGU ---
HPI HPI - Female History of Present Illness Chief Complaint: Flank Pain Narrative Narrative: Chief complaint and HPI: Right flank pain. 49-year-old female with past medical history of DM2, HLD, HTN, history of and cholecystectomy who presents for evaluation of right flank pain. Patient states that she has had right flank pain since Saturday. She states that it is not improved and is progressively worsening. Associated symptom is abdominal bloating. She denies any fever, chills, shortness of breath, chest pain, nausea, vomiting, diarrhea, constipation, dysuria. No history of kidney stones although history of UTI. Review of systems: See HPI Medications: As listed on the chart Allergies: As listed on the chart PFSH: Per chart Vital signs: As listed on the chart. Reviewed. Physical exam: Gen: A&O x3, NAD Head: Normocephalic, atraumatic Eyes: No sclera icterus, conjunctiva clear ENT: Moist mucous membranes Neck: Trachea midline, No JVD CV: RRR, no murmurs, no peripheral edema Resp: Lungs CTA BL, no w/r/c GI: Abd soft, non-distended, tender to palpation in the right flank, no r/r/g : No CVA tenderness Musc: Full ROM, no deformity Skin: Warm, dry Neuro: Alert, oriented, grossly intact, sensation intact Psych: Cooperative, appropriate mood and affect [facility] Medical History Asthmatic bronchitis with acute exacerbation Hypertriglyceridemia Diabetes History of kidney infection Polycystic ovaries Bowel obstruction Cholecystectomy planned HLD (hyperlipidemia) Borderline diabetes mellitus Home Medications ?Medication ?Instructions ?Recorded ?Last Taken ?Type fenofibrate micronized 200 mg 200 mg PO DAILY #90 caps 01/31/23 Unknown Rx capsule albuterol sulfate 90 mcg/actuation 2 inh inhalation Q6H PRN shortness 04/12/23 Unknown Rx breath activated powder inhaler of breath or wheezing #1 ea nystatin-triamcinolone 100,000 1 applic topical BID #30 grams 05/23/23 Unknown Rx unit/g-0.1 % topical cream budesonide-formoterol HFA 160 2 puff inhalation BID #10.2 grams 05/28/23 Unknown Rx mcg-4.5 mcg/actuation aerosol inhaler (Symbicort) blood sugar diagnostic (Blood #50 ea 12/04/23 Unknown Rx Glucose Test strips) blood-glucose meter (Blood Glucose #1 ea 12/04/23 Unknown Rx Monitoring kit) ketoconazole 200 mg tablet mg PO 07/28/24 Unknown History metformin 500 mg tablet 500 mg PO BID #180 TABLETS 10/26/24 Unknown Rx valsartan 80 mg tablet 80 mg PO DAILY #90 TABLETS 10/26/24 Unknown Rx dapagliflozin propanediol 10 mg 10 mg PO DAILY #30 tabs 10/30/24 Unknown Rx tablet (Farxiga) Allergy/AdvReac Type Severity Reaction Status Date / Time No Known Allergies Allergy Verified 11/17/24 07:50 Family History Grandmother Breast cancer Aunt Breast cancer Cancer Mother Cancer Father Myocardial infarction, Onset Age: 45 Other CVA (cerebral vascular accident) Diabetes Hypertension Kidney disease Surgical History History of History of endometrial ablation Social History Smoking Status: Current every day smoker tobacco type: cigarettes alcohol intake: current alcohol intake frequency: holidays/special occasions only substance use type: does not use what type of physical activity do you participate in: walking EXAM Physical Exam Const Vital Signs: 11/17/24 07:49 11/17/24 07:50 11/17/24 09:15 Temperature 96.7 F L 98 F 98 F Temperature Source Temporal Oral Oral Pulse Rate 95 82 88 Respiratory Rate 20 H 18 16 Blood Pressure 136/89 H 140/68 H 127/82 H Blood Pressure Mean 104 92 97 Pulse Ox 97 99 95 Oxygen Delivery Method Room Air Room Air 11/17/24 09:53 11/17/24 09:54 11/17/24 10:58 Temperature 98 F 97.9 F Temperature Source Oral Oral Pulse Rate 96 88 62 Respiratory Rate 16 16 Blood Pressure 126/79 H 126/79 H 142/72 H Blood Pressure Mean 94 94 95 Pulse Ox 95 95 Oxygen Delivery Method Room Air Room Air 11/17/24 10:58 Temperature Temperature Source Pulse Rate Respiratory Rate Blood Pressure 142/72 H Blood Pressure Mean 95 Pulse Ox Oxygen Delivery Method MDM MDM MDM Narrative Medical decision making narrative: 49-year-old female with past medical history of DM2, HLD, HTN, history of and cholecystectomy who presents for evaluation of right flank pain. Differential diagnosis includes but is not limited to appendicitis, gastroenteritis, pancreatitis, urolithiasis, UTI. Toradol and Zofran ordered for pain. Abdominal pain workup including CT abdomen and pelvis. CBC without leukocytosis or anemia. Patient has some mild hemoconcentration which can be seen in mild dehydration. CMP without significant electrolyte abnormality or REZA. No transaminitis. Lipase unremarkable. Troponin unremarkable. UA positive for glucose, patient is a diabetic. Positive for blood but no UTI. CT abdomen pelvis shows status post cholecystectomy as well as diffuse fatty infiltration of the liver. Otherwise unremarkable. Patient has atrophy of the lower pole the right kidney. Represents either postsurgical changes or old infarct. Patient states she has a history of kidney infections. I suspect this may be the etiology. At this point in time no clear etiology to explain patient's pain. She did have some blood in her urine, may have passed a small kidney stone. Pain has improved. Patient updated of all the results. Plan is for discharge home. Return back to the ED if symptoms change or worsen. She confirmed understand the plan. EKG: Interpreted by me/EM physician: EKG shows normal sinus rhythm without any acute ischemic changes. Heart rate 92 Impression: 1. Right flank pain Lab Data Labs: Laboratory Results - last 24 hr 11/17/24 11/17/24 08:10 08:40 WBC 5.7 RBC 5.21 Hgb 15.8 H Hct 47.1 H MCV 90.4 MCH 30.3 MCHC 33.5 RDW Std Deviation 38.9 RDW Coeff of Raymundo 11.8 Plt Count 262 MPV 8.6 Immature Gran % (Auto) 0.200 Neut % (Auto) 47.1 Lymph % (Auto) 39.3 Clarke % (Auto) 8.4 Eos % (Auto) 3.9 Baso % (Auto) 1.1 H Absolute Neuts (auto) 2.7 Absolute Lymphs (auto) 2.24 Nucleated RBC % 0 Sodium 137 Potassium 4.1 Chloride 104 Carbon Dioxide 26.0 Anion Gap 8 BUN 14 Creatinine 0.75 Estim Creat Clear Calc 74.85 Est GFR (MDRD) Af Amer 105 Est GFR (MDRD) Non-Af 87 BUN/Creatinine Ratio 18.7 Glucose 185 H Calcium 9.3 Total Bilirubin 0.50 AST 13 L ALT 27 Alkaline Phosphatase 66 Troponin I High Sens < 3 L Total Protein 7.1 Albumin 3.9 Globulin 3.2 Albumin/Globulin Ratio 1.2 Lipase 28 Urine Color Yellow Urine Clarity Clear Urine pH 6.0 Ur Specific Holcomb 1.015 Urine Protein Negative Urine Glucose (UA) 1000 H Urine Ketones Negative Urine Occult Blood 10 H Urine Nitrite Negative Urine Bilirubin Negative Urine Urobilinogen Normal Ur Leukocyte Esterase Negative Radiography Diagnostic Testing: Clinical Impression(s) from Imaging Studies Abdomen/Pelvis CT 11/17/24 08:25 IMPRESSION: Status post cholecystectomy. Diffuse fatty infiltration of the liver. One or more dose reduction techniques were used (e.g., Automated exposure control, adjustment of the mA and/or kV according to patient size, use of iterative reconstruction technique). Reading Location: [place] [address] Discharge Plan Triage Chief Complaint: Flank Pain ED Provider: Garland Carlos Dx/Rx/DC Orders Prescriptions: No Action fenofibrate micronized 200 mg capsule 200 mg PO DAILY Qty: 90 2RF nystatin-triamcinolone 100,000-0.1 unit/g-% cream 1 applic topical BID Qty: 30 1RF budesonide-formoterol [Symbicort] 160-4.5 mcg/actuation HFA aerosol inhaler 2 puff inhalation BID Qty: 10.2 4RF albuterol sulfate 90 mcg/actuation aerosol powdr breath activated 2 inh inhalation Q6H PRN (Reason: shortness of breath or wheezing) Qty: 1 0RF (DME) blood-glucose meter [Blood Glucose Monitoring] Kit See Rx Instructions .Route Qty: 1 0RF Rx Instructions: As directed (DME) Blood Glucose Test Strip See Rx Instructions .Route Qty: 50 0RF Rx Instructions: As directed ketoconazole 200 mg tablet PO metformin 500 mg tablet 500 mg PO BID Qty: 180 1RF valsartan 80 mg tablet 80 mg PO DAILY Qty: 90 1RF dapagliflozin propanediol [Farxiga] 10 mg tablet 10 mg PO DAILY Qty: 30 0RF Primary Care Provider: Jean Delaney Referrals: Jean Delaney, DO [Primary Care Provider] - Print Language: Mongolian
[2024-11-17 08:48] LABS: Absolute Lymphocyte Count 2.24 X10^3/uL (0.83-4.51); Absolute Neutrophil Count 2.7 X10^3/uL (2.0-7.7); Basophil# 0.06 X10^3/uL; Basophil% 1.1 % (0-1); Eosinophil# 0.22 X10^3/uL; Eosinophils% 3.9 % (0-5); Hematocrit 47.1 % (37-47); Hemoglobin 15.8 g/dL (12.0-15.0); Lymphocyte # 2.24 X10^3/ul (0.83-4.51); Lymphocyte % 39.3 % (19-41); Mean Corp Hgb Conc 33.5 g/dL (32-36); Mean Corpuscular Hgb 30.3 pg (27.0-32.0); Mean Corpuscular Volume 90.4 fL (81-99); Mean Platelet Vol. 8.6 fl (6.2-12.0); Monocyte# 0.48 X10^3/uL; Monocyte% 8.4 % (0-10); NRBC Flagged by Analyzer 0 % (0-5); Neutrophil # 2.69 X10^3/uL (2.7-7.7); Neutrophil % 47.1 % (47-70); Platelet Count 262 K/mm3 (150-450); RBC Distribution Width CV 11.8 % (11.6-14.6); RBC Distribution Width SD 38.9 fl (35.1-43.9); Red Blood Count 5.21 M/mm3 (4.2-5.4); White Blood Count 5.7 K/mm3 (4.4-11.0)
[2024-11-17 08:55] LABS: Color, Urine Yellow (Yellow); Glucose, Dipstick 1000 mg/dl (Normal); Ketone-Dipstick Negative (Negative); Leukocyte Esterase-Dipstick Negative /ul (Negative); Nitrite-Dipstick Negative (Negative); Occult Blood-Urine 10 /ul (Negative); Protein-Dipstick Negative (Negative); Specific Gravity, Urine 1.015 (1.002-1.030); Urine Bilirubin Dipstick Negative (Negative); Urine Clarity Clear (Clear); Urine Urobilinogen Normal (Normal)
[2024-11-17] MEDS: Ondansetron 4 MG/2 ML Vial IV (09:04)
[2024-11-17 09:06] LABS: ALB/GLOB Ratio 1.2 RATIO (0.9-2.4); AST(SGOT) 13 U/L (15-37); Alanine Aminotransfer ALT/SGPT 27 U/L (13-56); Albumin, Serum 3.9 g/dL (3.2-5.0); Alkaline Phosphatase 66 U/L (45-117); Anion Gap 8 (5-15); BUN 14 mg/dL (7-18); BUN/Creat Ratio 18.7 RATIO (10-20); Calcium,Total 9.3 mg/dL (8.5-10.1); Chloride 104 mmol/L (98-107); Creatinine, Serum 0.75 mg/dL (0.55-1.02); EST Glomerular Filtration Rate 87 mL/min (>60); Est Glom Filt Rate - Afr Amer 105 mL/min (>60); Estimated Creatinine Clearance 74.85 ml/min; Globulin 3.2 g/dL (2.2-4.2); Glucose 185 mg/dL (74-106); Lipase 28 U/L (13-75); Potassium 4.1 mmol/L (3.5-5.1); Protein, Total 7.1 g/dL (6.4-8.2); Sodium Level 137 mmol/L (136-145); Troponin-I HS < 3 pg/mL (3.0-54.0)
[2024-11-17] MEDS: Ketorolac 15 MG/ML Vial IV (09:06)
== END 2024-11-17 12:00 | disposition home or self-care (01) ==
PROVIDERS: Emergency Provider Surgery; PCP Family Medicine; Visit Provider Surgery
DX: R10.9 Unspecified abdominal pain (principal); E11.9 Type 2 diabetes mellitus without complications; I10 Essential (primary) hypertension; E78.5 Hyperlipidemia, unspecified; Z90.49 Acquired absence of other specified parts of digestive tract; F17.210 Nicotine dependence, cigarettes, uncomplicated
CPT/HCPCS: 74177; 80053; 81002; 83690; 84484; 85025; 93005; 96374; 96375; 99283; Q9967; A4216; J2405

== ENCOUNTER → 2024-11-17 | Outpatient (CLI) | payer OTHER, SELFPAY ==
[2024-11-17 10:24] LABS: Mucous, Urine 0 SEEN /hpf (<or=2+); White Blood Cells 0 SEEN /hpf (0-5)
[2024-11-17 10:35] LABS: Color, Urine Yellow (Yellow); Glucose, Dipstick 1000 mg/dl (Normal); Ketone-Dipstick Negative (Negative); Leukocyte Esterase-Dipstick Negative /ul (Negative); Nitrite-Dipstick Negative (Negative); Occult Blood-Urine 10 /ul (Negative); Protein-Dipstick Negative (Negative); Urine Bilirubin Dipstick Negative (Negative); Urine Clarity Clear (Clear); Urine Urobilinogen Normal (Normal)
[2024-11-17 11:03] LABS: Bacteria 1+ /hpf (None Seen); Red Blood Cells-Urine 0-5 SEEN /hpf (0-5); Squamous Epithelial Cells - UA 5-10 SEEN /hpf (5-10); Transitional Epithelial - Ur 0-5 SEEN /hpf (0-5); Yeast-Urine 2+ /hpf (None Seen)
== END | disposition home or self-care (01) ==
LOC: LABSPEC 10:19
PROVIDERS: PCP Family Medicine; Referring Provider Physician Assistant; Visit Provider Physician Assistant
DX: R35.0 Frequency of micturition (principal)
CPT/HCPCS: 81001; 87086; 87088

== ENCOUNTER → 2024-11-18 | Outpatient (CLI) | payer OTHER, SELFPAY ==
[2024-11-18 11:33] LABS: Bacteria 0 SEEN /hpf (None Seen); Mucous, Urine 0 SEEN /hpf (<or=2+); White Blood Cells 0 SEEN /hpf (0-5)
[2024-11-18 12:05] LABS: Color, Urine Yellow (Yellow); Glucose, Dipstick 1000 mg/dl (Normal); Ketone-Dipstick 5 mg/dl (Negative); Leukocyte Esterase-Dipstick Negative /ul (Negative); Nitrite-Dipstick Negative (Negative); Occult Blood-Urine 10 /ul (Negative); Protein-Dipstick 30 mg/dl (Negative); Urine Bilirubin Dipstick Negative (Negative); Urine Clarity Sl. Cloudy (Clear); Urine Urobilinogen Normal (Normal)
[2024-11-18 12:19] LABS: Squamous Epithelial Cells - UA 0-5 SEEN /hpf (5-10)
[2024-11-18 12:20] LABS: Red Blood Cells-Urine 0-5 SEEN /hpf (0-5)
== END | disposition home or self-care (01) ==
LOC: BIMLAB 11:28
PROVIDERS: PCP Family Medicine; Visit Provider Family Medicine
DX: R10.9 Unspecified abdominal pain (principal)
CPT/HCPCS: 81001

== ENCOUNTER → 2025-05-06 | Outpatient (CLI) | payer OTHER, SELFPAY ==
--- NOTE | 2025-05-06 10:30 | BD_ITS ---
PROCEDURE: DEXA BONE DENSITY STUDY 05/06/2025 REASON FOR EXAM: OSTEOPENIA F, age 50 y/o . Postmenopausal. TECHNIQUE: DEXA BONE DENSITY STUDY COMPARISON: Prior study dated March 05, 2023. FINDINGS: BMD and T-SCORES Lumbar spine: 1.035 g/cm2, T-score -0.1 Levels: L1 through L4 Change from prior: Loss of 6.9%. Left femoral neck: 0.724 g/cm2, T-score -1.1 Femoral neck comparison data not recommended for monitoring change. Left total hip: 0.904 g/cm2, T-score -0.3 Change from prior: Loss of 4.8%. Right femoral neck: 0.684 g/cm2, T-score -1.5 Femoral neck comparison data not recommended for monitoring change. Right total hip: 0.871 g/cm2, T-score -0.6 Change from prior: Loss of 5%. The World Health Organization has defined the following categories based on bone density: Normal bone density: T-score equal to or greater than -1.0 Osteopenia: T-score between -1.0 and -2.5 Osteoporosis: T-score equal to or less than -2.5 The patient does meet the pharmacological treatment recommendations for prevention of osteoporosis. BD/Dexa Bone Density Study IMPRESSION: OSTEOPENIA. Recommend follow-up as clinically warranted. Reading Location: [place] [id number]
--- NOTE | 2025-05-06 10:30 | BD_ITS ---
PROCEDURE: DEXA BONE DENSITY STUDY 05/06/2025 REASON FOR EXAM: OSTEOPENIA F, age 50 y/o . Postmenopausal. TECHNIQUE: DEXA BONE DENSITY STUDY COMPARISON: Prior study dated March 05, 2023. FINDINGS: BMD and T-SCORES Lumbar spine: 1.035 g/cm2, T-score -0.1 Levels: L1 through L4 Change from prior: Loss of 6.9%. Left femoral neck: 0.724 g/cm2, T-score -1.1 Femoral neck comparison data not recommended for monitoring change. Left total hip: 0.904 g/cm2, T-score -0.3 Change from prior: Loss of 4.8%. Right femoral neck: 0.684 g/cm2, T-score -1.5 Femoral neck comparison data not recommended for monitoring change. Right total hip: 0.871 g/cm2, T-score -0.6 Change from prior: Loss of 5%. The World Health Organization has defined the following categories based on bone density: Normal bone density: T-score equal to or greater than -1.0 Osteopenia: T-score between -1.0 and -2.5 Osteoporosis: T-score equal to or less than -2.5 The patient does meet the pharmacological treatment recommendations for prevention of osteoporosis. BD/Dexa Bone Density Study IMPRESSION: OSTEOPENIA. Recommend follow-up as clinically warranted. Reading Location: [place] [id number]
== END | disposition home or self-care (01) ==
LOC: OPBD 10:21
PROVIDERS: PCP Family Medicine; Referring Provider Family Medicine; Visit Provider Family Medicine
DX: M85.80 Other specified disorders of bone density and structure, unspecified site (principal); Z78.0 Asymptomatic menopausal state
CPT/HCPCS: 77080

== ENCOUNTER → 2025-05-18 | Outpatient (CLI) | payer OTHER, SELFPAY ==
--- NOTE | 2025-05-18 07:45 | CT_ITS ---
PROCEDURE: LIMITED CHEST CT CARDIAC ONLY 05/18/2025 REASON FOR EXAM: DIABETES Hyperlipidemia. Family history of heart disease. TECHNIQUE: LIMITED CHEST CT CARDIAC ONLY CONTRAST: None One or more dose reduction techniques were used (e.g., Automated exposure control, adjustment of the mA and/or kV according to patient size, use of iterative reconstruction technique). RADIATION DOSE SUMMARY: CTDlvol: 12.19 mGy DLP: 195.04 mGycm COMPARISON: None FINDINGS: Mild degree of calcification of the aortic arch. The heart is nonenlarged. Minimal calcification of the LAD. The lungs are clear. CT/Limited Chest CT Cardiac Only IMPRESSION: Minimal calcification of the LAD. Reading Location: [place]
--- NOTE | 2025-05-19 07:16 | CA.SCORE ---
Calcium Scoring Date of Study:: 05/18/25 Indications Indications: Family history hyperlipidemia Coronary Calcium Scoring: High-resolution Computed Tomographic imaging of the chest was performed on [05/18/2025], with particular attention paid to the coronary arteries. Images from the examination were analyzed for the presence and extent of coronary artery calcification , using coronary calcium quantification software. The patient tolerated the procedure well and there were no complications. The results of the coronary calcification analysis are provided below. Findings Coronary Artery Left Main (LM): 0 Left Anterior Descending (LAD): 0 Left Circumflex (LCX): 0 Right Coronary Artery (RCA): 0 Total Agatston Score: 0 Percentile Rankinth percentile Calcium Scoring Interpretation: Different methods to categorize the overall amount of coronary plaque. Overall amount CAC SIS Visual of coronary plaque P1 Mild -100 <2 1-2 vessels with mild amount of plaque P2 Moderate 101-300 3-4 1-2 vessels with moderate amount, 3 vessels with mild amount of plaque P3 Severe 301-999 5-7 3 vessels with moderate amount, 1 vessel with severe amount of plaque P4 Extensive >1000 >8 2-3 vessels with severe amount of plaque Conclusion: No atherosclerotic plaquing noted
== END | disposition home or self-care (01) ==
LOC: CT 07:45
PROVIDERS: PCP Family Medicine; Referring Provider Family Medicine; Visit Provider Family Medicine
DX: E11.9 Type 2 diabetes mellitus without complications (principal); E78.1 Pure hyperglyceridemia
CPT/HCPCS: 75571; 76380

== ENCOUNTER → 2025-06-09 | Outpatient (CLI) | payer OTHER, SELFPAY ==
[2025-06-09 11:00] LABS: AST(SGOT) 23 U/L (<=31); Alanine Aminotransfer ALT/SGPT 33 U/L (<=34); Albumin, Serum 4.4 g/dL (3.5-5.0); Alkaline Phosphatase 74 U/L (35-104); Anion Gap 14 (5-15); BUN 19 mg/dL (4-19); BUN/Creat Ratio 26.9 RATIO (10-20); Calcium,Total 9.5 mg/dL (7.6-11.0); Carbon Dioxide 23.6 mmol/L (21.0-32.0); Chloride 101 mmol/L (98-108); Cholesterol 217 mg/dL (<=200); Globulin 2.5 g/dL (2.2-4.2); Glucose 173 mg/dL (70-99); Low Density Lipoprotein Calc. 89 mg/dL; Potassium 4.3 mmol/L (3.3-5.1); Triglycerides 488 mg/dL; Very Low Density Lipoprotein 98 mg/dL (5-40); cholesterol:hdl ratio screen 7.11
== END | disposition home or self-care (01) ==
LOC: LAB 09:17
PROVIDERS: PCP Family Medicine; Referring Provider Family Medicine; Visit Provider Family Medicine
DX: I10 Essential (primary) hypertension (principal); E11.9 Type 2 diabetes mellitus without complications
CPT/HCPCS: 36415; 80053; 80061